=== PATIENT | female | born 1975 | race Hispanic/Latino ===

== ENCOUNTER 2017-11-05 23:59 | Inpatient (IN) | payer MEDICAID ==
[2017-11-06 02:01] LABS: Basophils % (Auto) 0.5 % (0.0-1.8); Eosinophils # (Auto) 0.2 K/mm3 (0.0-0.4); Eosinophils % (Auto) 1.8 % (0.0-4.3); Hemoglobin 12.9 gm/dl (10.1-14.3); Lymphocytes % (Auto) 23.8 % (13.4-35.0); Mean Corpuscular HGB Conc 32 % (30-34); Mean Corpuscular Hemoglobin 31 pg (28-32); Mean Corpuscular Volume 96 fl (79-97); Monocytes # (Auto) 0.3 K/mm3 (0.0-0.8); Monocytes % (Auto) 3.8 % (0.0-7.3); Platelet Count 195 K/mm3 (140-440); Red Blood Count 4.17 M/mm3 (3.65-5.03); Red Cell Distribution Width 14.7 % (13.2-15.2)
[2017-11-06 02:17] LABS: BUN/Creatinine Ratio 13; Blood Urea Nitrogen 39 mg/dL (7-17); Calcium 7.7 mg/dL (8.4-10.2); Hemolysis Index 5
--- NOTE | 2017-11-06 07:47 | Emergency Department Report ---
ED Chest Pain HPI - General Chief Complaint: Chest Pain Stated Complaint: CHEST PAIN Time Seen by Provider: 11/06/17 07:45 Source: patient Mode of arrival: Stretcher Limitations: No Limitations - History of Present Illness Initial Comments: This is a 42-year-old female with extensive history of coronary artery disease and insulin-dependent diabetes and hypertension. She requires awakening to obtain a history. She does states that she's been having substernal chest pain which does not radiate since yesterday but it has resolved now. She denies any associated symptoms. She doesn't appear very motivated to talk about her history. She is denying any problem at this time. She states the pain lasted "all day" yesterday. MD Complaint: chest pain -: hour(s) Onset: during rest Pain Location: substernal Pain Radiation: none Severity: mild, moderate Quality: pressure Consistency: constant, now resolved Improves With: nothing (does not take nitroglycerin) Worsens With: nothing re: denies: nausea, vomting, diaphoresis, dyspnea, sense of impending doom Other Symptoms: denies: cough, fever, syncope Treatments Prior to Arrival: none Aspirin use within the Past 7 Days: (0) No - Related Data On Oral Contraceptives: No Home Medications Medication Instructions Recorded Confirmed Last Taken AtorvaSTATin [Lipitor] 40 mg PO DAILY 09/16/16 09/14/17 1 Day Ago ~09/13/17 hydrALAZINE [Apresoline TAB] 25 mg PO Q8HR 09/16/16 09/14/17 1 Day Ago ~09/13/17 Previous Rx's Medication Instructions Recorded Last Taken Type Apixaban [Eliquis] 2.5 mg PO BID 60 Days tablet 07/22/16 1 Day Ago Rx ~09/13/17 Diltiazem Cd [Cardizem CD] 180 mg PO QDAY #30 capsule 07/22/16 1 Day Ago Rx ~09/13/17 ISOSORBIDE MONOnitrate [Imdur ER] 60 mg PO QDAY #30 tablet 07/22/16 1 Day Ago Rx ~09/13/17 Insulin Glargine,Hum.rec.anlog 20 unit SQ QHS #30 07/22/16 1 Day Ago Rx [Lantus Solostar] ~09/13/17 Metoprolol [Lopressor TAB] 25 mg PO BID #60 tablet 07/22/16 1 Day Ago Rx ~09/13/17 Torsemide [Demadex] 40 mg PO DAILY 30 Days tablet 09/17/16 1 Day Ago Rx ~09/13/17 Aspirin EC [Aspirin Enteric Coated 81 mg PO QDAY tablet 10/12/16 1 Day Ago Rx TAB] ~09/13/17 Furosemide [Lasix TAB] 20 mg PO DAILY #30 tablet 09/15/17 Unknown Rx Ranolazine ER [Ranexa ER] 500 mg PO BID #60 tablet 09/15/17 Unknown Rx Allergies Allergy/AdvReac Type Severity Reaction Status Date / Time No Known Allergies Allergy Verified 10/10/13 01:16 Heart Score - HEART Score History: Moderately suspicious EKG: Non-specific Age: < 45 Risk factors: > 3 risk factors or hx of atherosclerotic disease Troponin: < normal limit HEART Score: 4 - Critical Actions Critical Actions: 4-6 pts:12-16.6% risk of adverse cardiac event. Should be admitted ED Review of Systems ROS: Stated complaint: CHEST PAIN Other details as noted in HPI Constitutional: denies: chills, fever Eyes: denies: eye pain, eye discharge, vision change ENT: denies: ear pain, throat pain Respiratory: denies: cough, shortness of breath, wheezing Cardiovascular: chest pain. denies: palpitations Endocrine: no symptoms reported Gastrointestinal: denies: abdominal pain, nausea, diarrhea Genitourinary: denies: urgency, dysuria, discharge Musculoskeletal: denies: back pain, joint swelling, arthralgia Skin: denies: rash, lesions Neurological: denies: headache, weakness, paresthesias Psychiatric: denies: anxiety, depression Hematological/Lymphatic: denies: easy bleeding, easy bruising ED Past Medical Hx - Past Medical History Previous Medical History?: Yes Hx Hypertension: Yes Hx Congestive Heart Failure: Yes Hx Diabetes: Yes Hx Asthma: No Hx COPD: Yes Hx HIV: No Additional medical history: Pulmonary hypertension and dilated right atrium or neck. Left ventricular function within normal limits.Patient says she is on stage 4 of renal failure.But not on dialysis. - Surgical History Past Surgical History?: Yes Additional Surgical History: Bilateral cataracts and laser surgery for diabetic retinopathy with residual decreased vision in the left eye even prior to today. - Social History Smoking Status: Never Smoker Substance Use Type: None - Medications Home Medications: Home Medications Medication Instructions Recorded Confirmed Last Taken Type Apixaban [Eliquis] 2.5 mg PO BID 60 Days tablet 07/22/16 09/14/17 1 Day Ago Rx ~09/13/17 Diltiazem Cd [Cardizem CD] 180 mg PO QDAY #30 capsule 07/22/16 09/14/17 1 Day Ago Rx ~09/13/17 ISOSORBIDE MONOnitrate [Imdur ER] 60 mg PO QDAY #30 tablet 07/22/16 09/14/17 1 Day Ago Rx ~09/13/17 Insulin Glargine,Hum.rec.anlog 20 unit SQ QHS #30 07/22/16 09/14/17 1 Day Ago Rx [Lantus Solostar] ~09/13/17 Metoprolol [Lopressor TAB] 25 mg PO BID #60 tablet 07/22/16 09/14/17 1 Day Ago Rx ~09/13/17 AtorvaSTATin [Lipitor] 40 mg PO DAILY 09/16/16 09/14/17 1 Day Ago History ~09/13/17 hydrALAZINE [Apresoline TAB] 25 mg PO Q8HR 09/16/16 09/14/17 1 Day Ago History ~09/13/17 Torsemide [Demadex] 40 mg PO DAILY 30 Days tablet 09/17/16 09/14/17 1 Day Ago Rx ~09/13/17 Aspirin EC [Aspirin Enteric Coated 81 mg PO QDAY tablet 10/12/16 09/14/17 1 Day Ago Rx TAB] ~09/13/17 Furosemide [Lasix TAB] 20 mg PO DAILY #30 tablet 09/15/17 Unknown Rx Ranolazine ER [Ranexa ER] 500 mg PO BID #60 tablet 09/15/17 Unknown Rx ED Physical Exam - General Limitations: No Limitations General appearance: alert, in no apparent distress - Head Head exam: Present: atraumatic, normocephalic - Eye Eye exam: Present: normal appearance. Absent: scleral icterus - ENT ENT exam: Present: mucous membranes moist - Neck Neck exam: Present: normal inspection - Respiratory Respiratory exam: Present: normal lung sounds bilaterally. Absent: respiratory distress - Cardiovascular Cardiovascular Exam: Present: regular rate, normal rhythm. Absent: systolic murmur, diastolic murmur, rubs, gallop - GI/Abdominal GI/Abdominal exam: Present: soft, normal bowel sounds. Absent: distended, tenderness, guarding, rebound, rigid - Extremities Exam Extremities exam: Present: normal inspection, full ROM, normal capillary refill , pedal edema. Absent: tenderness, joint swelling, calf tenderness - Back Exam Back exam: Present: normal inspection - Neurological Exam Neurological exam: Present: alert, oriented X3, CN II-XII intact. Absent: motor sensory deficit - Psychiatric Psychiatric exam: Present: normal mood, flat affect - Skin Skin exam: Present: warm, dry, intact, normal color. Absent: rash ED Course Vital Signs 11/06/17 11/06/17 00:38 07:34 Temperature 98.7 F Pulse Rate 72 Respiratory 17 16 Rate Blood Pressure 187/104 O2 Sat by Pulse 99 98 Oximetry - Reevaluation(s) Reevaluation #1: Patient is admitted to the hospitalist service in stable condition. Discussed with Dr. Mason 11/06/17 09:21 LUCHO score - Lucho Score Age > 65: (0) No Aspirin use within the Past 7 Days: (1) Yes 3 or more CAD Risk Factors: (1) Yes 2 or more Angina events in past 24 hrs: (1) Yes Known CAD with more than 50% Stenosis: (0) No Elevated Cardiac Markers: (0) No ST Deviation Greater than 0.5mm: (1) Yes LUCHO Score: 4 ED Medical Decision Making - Lab Data Result diagrams: 11/06/17 01:37 11/06/17 01:37 Laboratory Results - last 24 hr 11/06/17 11/06/17 11/06/17 01:37 01:37 04:52 WBC 8.5 RBC 4.17 Hgb 12.9 Hct 40.0 MCV 96 MCH 31 MCHC 32 RDW 14.7 Plt Count 195 Lymph % (Auto) 23.8 [place] % (Auto) 3.8 Eos % (Auto) 1.8 Baso % (Auto) 0.5 Lymph # 2.0 [place] # 0.3 Eos # 0.2 Baso # 0.0 Seg Neutrophils % 70.1 H Seg Neutrophils # 6.0 Sodium 135 L Potassium 4.0 Chloride 102.1 Carbon Dioxide 19 L Anion Gap 18 BUN 39 H Creatinine 2.9 H Estimated GFR 18 BUN/Creatinine Ratio 13 Glucose 154 H Calcium 7.7 L Troponin T < 0.010 < 0.010 - EKG Data -: EKG Interpreted by Me EKG shows normal: sinus rhythm, axis, intervals, QRS complexes, ST-T waves Rate: normal - EKG Data Interpretation: other (incomplete right bundle branch block plus left posterior fascicular block. No acute ischemic changes.) - Radiology Data Radiology results: pending Critical care attestation.: If time is entered above; I have spent that time in minutes in the direct care of this critically ill patient, excluding procedure time. ED Disposition Clinical Impression: Insulin dependent diabetes mellitus, Chronic renal insufficiency, stage III ( moderate) Chest pain Qualifiers: Chest pain type: unspecified Qualified Code(s): R07.9 - Chest pain, unspecified CAD (coronary artery disease) Qualifiers: Coronary Disease-Associated Artery/Lesion type: [place] artery [place] vs. transplanted heart: [place] heart Associated angina: with stable angina Qualified Code(s): I25.118 - Atherosclerotic heart disease of [place] coronary artery with other forms of angina pectoris Disposition: DC-09 OP ADMIT IP TO THIS HOSP Is pt being admited?: Yes Does the pt Need Aspirin: Yes Condition: Stable
[2017-11-06] MEDS ORDERED: ASPIRIN PO ONE (08:24)
[2017-11-06] MEDS ORDERED: NITRO-BID 2% TP ONE (08:24)
[2017-11-06] MEDS ORDERED: SODIUM CHLORIDE FLUSH SYRINGE 10 ML IV PRN (10:16)
--- NOTE | 2017-11-06 10:16 | History and Physical Report ---
History of Present Illness Date of examination: 11/06/17 Date of admission: 11/06/17 08:19 Chief complaint: chest pain History of present illness: Pt is a 42-year-old female with extensive history of coronary artery disease and insulin-dependent diabetes and hypertensionpresented to the ED [facility] on account of dull retrosternal chest pain. She does states that she's been having substernal chest pain which does not radiate since yesterday but it has resolved now. Denies any shortness of breath, orthopnea or PND . On admission, initial set of cardiac enzymes were normal. EKG and CXR were unremarkable. BUN and creatinine were very elevated as well as BNP. Pt denies any fever, chill N/V , or syncope. Admission was requested. Past History Past Medical History: diabetes, hypertension Medications and Allergies Allergies Allergy/AdvReac Type Severity Reaction Status Date / Time No Known Allergies Allergy Verified 10/10/13 01:16 Home Medications Medication Instructions Recorded Confirmed Last Taken Type Apixaban [Eliquis] 2.5 mg PO BID 60 Days tablet 07/22/16 11/06/17 11/05/17 Rx Insulin Glargine,Hum.rec.anlog 20 unit SQ QHS #30 07/22/16 11/06/17 11/05/17 Rx [Lantus Solostar] hydrALAZINE [Apresoline TAB] 15 mg PO Q8HR 09/16/16 11/06/17 11/05/17 History Aspirin EC [Aspirin Enteric Coated 81 mg PO QDAY tablet 10/12/16 11/06/1711/05 Rx TAB] Lispro Insulin [Humalog] 15 unit SQ BID 11/06/17 11/06/17 11/05/17 History Review of Systems Constitutional: no weight loss, no fever, no chills Ears, nose, mouth and throat: no ear pain, no ear discharge Cardiovascular: chest pain, orthopnea, no palpitations Respiratory: no cough, no cough with sputum, no excessive sputum Gastrointestinal: no abdominal pain, no nausea, no vomiting, no diarrhea Musculoskeletal: no neck stiffness, no neck pain, no shooting arm pain Integumentary: no rash, no pruritis, no redness Neurological: no head injury, no transient paralysis, no paralysis, no weakness , no parathesias, no lack of coordination Psychiatric: no anxiety, no memory loss, no change in sleep habits, no sleep disturbances Endocrine: no cold intolerance, no heat intolerance, no polyphagia, no excessive thirst, no polydipsia Hematologic/Lymphatic: no easy bruising, no easy bleeding Allergic/Immunologic: no urticaria, no allergic rhinitis Exam - Physical Exam Narrative exam: Constitutional: Well-nourished well-developed. In no distress Head: Normocephalic atraumatic Eyes: Pupils are equal round and reactive to light Nose: No enlarged turbinates, no septal deviation. Mouth: Moist mucous membranes. Neck: Supple no thyromegaly. No bruit. No JVD Heart: Regular rate and rhythm, S1-S2 abnormal. No rubs murmurs or gallop Lungs: Clear to auscultation bilaterally no rales or rhonchi Abdomen: Soft, nontender. Bowel sound are present. Extremities: No edema no cyanosis and no clubbing. Neuro: Alert oriented Oriented x3. No focal sensory or motor deficit. Skin: No rashes no hyperemic spots Psychiatry: Euthymic. Calm. - Constitutional Vitals: Temp Pulse Resp BP Pulse Ox 98.7 F 72 16 187/104 98 11/06/17 00:38 11/06/17 00:38 11/06/17 07:34 11/06/17 00:38 11/06/17 07:34 Results - Labs CBC & Chem 7: 11/06/17 10:33 11/06/17 09:52 Labs: Abnormal lab results 11/06/17 11/06/17 Range/Units 01:37 01:37 Seg Neutrophils % 70.1 H (40.0-70.0) % Sodium 135 L (137-145) mmol/L Carbon Dioxide 19 L (22-30) mmol/L BUN 39 H (7-17) mg/dL Creatinine 2.9 H (0.7-1.2) mg/dL Glucose 154 H (65-100) mg/dL Calcium 7.7 L (8.4-10.2) mg/dL Assessment and Plan - Chest pain Admit to telemetry Obtain serial cardiac enzymes Initiate chest pain workup with oxygen nitroglycerin and aspirin and morphine. - Acute on chronic renal failure from acute tubular necrosis Urinalysis, urine electrolytes, Renal ultrasound, Nephrology consult - Diabetes mellitus Initiates Sliding scale insulin Obtain A1c Consistent carbohydrate diet - History of PAfib Elevated BNP- may be secondary to Chronic Renal failure. Howeer we will obtain ECHO Diuresis BB, Hold ACEIb/c Acute on chronic renal failure - HTN optimoncze control DVT PPX with heparin
--- NOTE | 2017-11-06 10:17 | XRay Report ---
Portable chest: Comparison is made to the prior exam on September 13, 2017. There is suggestion of a focal area of mild alveolar opacity or atelectasis in the left upper lobe not previously noted. A couple areas of focal linear atelectasis/scar are noted in the mid left lung but not substantially different than previous exam. Lungs otherwise appear clear. The heart is probably not enlarged poor positioning. There is no vascular congestion. Impression: Focal left upper lobe infiltrate/atelectasis.
[2017-11-06 10:20] LABS: Alanine Aminotransferase 7 units/L (7-56); Albumin 2.8 g/dL (3.9-5)
[2017-11-06 10:33] LABS: Bilirubin,Direct < 0.2 mg/dL (0-0.2)
[2017-11-06 10:39] LABS: INR 0.98 (0.87-1.13)
[2017-11-06 10:40] LABS: Partial Thromboplastin Time 30.6 Sec. (24.2-36.6)
[2017-11-06 10:55] LABS: Basophils % (Auto) 0.6 % (0.0-1.8); Eosinophils # (Auto) 0.2 K/mm3 (0.0-0.4); Eosinophils % (Auto) 2.3 % (0.0-4.3); Hemoglobin 12.9 gm/dl (10.1-14.3); Lymphocytes # (Auto) 1.9 K/mm3 (1.2-5.4); Lymphocytes % (Auto) 25.3 % (13.4-35.0); Mean Corpuscular HGB Conc 32 % (30-34); Mean Corpuscular Hemoglobin 31 pg (28-32); Mean Corpuscular Volume 95 fl (79-97); Monocytes # (Auto) 0.3 K/mm3 (0.0-0.8); Monocytes % (Auto) 4.4 % (0.0-7.3); Platelet Count 187 K/mm3 (140-440); Red Blood Count 4.23 M/mm3 (3.65-5.03); Red Cell Distribution Width 14.7 % (13.2-15.2)
[2017-11-06 10:57] LABS: Calcium 8.2 mg/dL (8.4-10.2); Chol/HDL Ratio 3.25 %
[2017-11-06] MEDS: ZESTRIL PO SCH ×2 (11:00→23:00)
--- NOTE | 2017-11-06 11:10 | XRay Report ---
PA and lateral chest: Chest pain. There is focal linear atelectasis in the left midlung region. Lungs otherwise appear generally clear. There is mild enlargement of the heart. There is no vascular congestion. Compared to prior exam on November 06 of focal atelectasis may be slightly increased but the findings are not otherwise changed. Impression: Focal left atelectasis. Mild cardiac enlargement.
--- NOTE | 2017-11-06 12:13 | Consultation ---
History of Present Illness Consult date: 11/06/17 Consult reason: chest pain History of present illness: This is a 42yr old woman with a history of coronary artery disease with a drug- eluting stent placed to the right coronary artery in June 2016. 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 Patient is followed with Dr Mckeon, sporting goods sales associate in [place]. She presents to this hospital with complaints of atypical chest pain. There were no reports of shortness of breath or palpitations. There was no pre- syncope or syncope. Her EKG is a sinus rhythm, no acute ischemic changes. On review of records, patient was admitted to this hospital 6 weeks ago for cardiac evaluation. She underwent a thallium stress test that reports a large, fixed defect on the lateral wall of the left ventricle, with no reversibility on the resting study. This appears consistent with a prior lateral infarct. 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 Medications and Allergies Allergies Allergy/AdvReac Type Severity Reaction Status Date / Time No Known Allergies Allergy Verified 10/10/13 01:16 Home Medications Medication Instructions Recorded Confirmed Last Taken Type Apixaban [Eliquis] 2.5 mg PO BID 60 Days tablet 07/22/16 09/14/17 1 Day Ago Rx ~09/13/17 Diltiazem Cd [Cardizem CD] 180 mg PO QDAY #30 capsule 07/22/16 09/14/17 1 Day Ago Rx ~09/13/17 ISOSORBIDE MONOnitrate [Imdur ER] 60 mg PO QDAY #30 tablet 07/22/16 09/14/17 1 Day Ago Rx ~09/13/17 Insulin Glargine,Hum.rec.anlog 20 unit SQ QHS #30 07/22/16 09/14/17 1 Day Ago Rx [Lantus Solostar] ~09/13/17 Metoprolol [Lopressor TAB] 25 mg PO BID #60 tablet 07/22/16 09/14/17 1 Day Ago Rx ~09/13/17 AtorvaSTATin [Lipitor] 40 mg PO DAILY 09/16/16 09/14/17 1 Day Ago History ~09/13/17 hydrALAZINE [Apresoline TAB] 25 mg PO Q8HR 09/16/16 09/14/17 1 Day Ago History ~09/13/17 Torsemide [Demadex] 40 mg PO DAILY 30 Days tablet 09/17/16 09/14/17 1 Day Ago Rx ~09/13/17 Aspirin EC [Aspirin Enteric Coated 81 mg PO QDAY tablet 10/12/16 09/14/17 1 Day Ago Rx TAB] ~09/13/17 Furosemide [Lasix TAB] 20 mg PO DAILY #30 tablet 09/15/17 Unknown Rx Ranolazine ER [Ranexa ER] 500 mg PO BID #60 tablet 09/15/17 Unknown Rx Active Meds: Active Medications Aspirin (Ecotrin) 325 mg PO QDAY EILSE Atorvastatin Calcium (Lipitor) 20 mg PO QHS ELISE Carvedilol (Coreg) 6.25 mg PO BID ELISE Furosemide (Lasix) 20 mg IV QDAY ELISE Lisinopril (Zestril) 20 mg PO BID ELISE Nitroglycerin (Nitro-Bid 2%) 0.5 inch TP TIDNTG ELISE; Protocol Sodium Chloride (Sodium Chloride Flush Syringe 10 Ml) 10 ml IV PRN PRN PRN Reason: LINE FLUSH Physical Examination Vital Signs Temp Pulse Resp BP Pulse Ox 98.7 F 72 17 187/104 99 11/06/17 00:38 11/06/17 00:38 11/06/17 00:38 11/06/17 00:38 11/06/17 00:38 General appearance: no acute distress HEENT: Positive: PERRL Cardiac: Positive: Reg Rate and Rhythm Lungs: Positive: Decreased Breath Sounds Extremities: Absent: edema Results 11/06/17 10:33 11/06/17 09:52 Cardiac Enzymes 11/06/17 Range/Units 09:52 AST 8 (5-40) units/L Coagulation 11/06/17 Range/Units 09:52 PT 13.5 (12.2-14.9) Sec. INR 0.98 (0.87-1.13) APTT 30.6 (24.2-36.6) Sec. Lipids 11/06/17 Range/Units 09:52 Triglycerides 93 (2-149) mg/dL Cholesterol 156 (50-199) mg/dL HDL Cholesterol 48 (40-59) mg/dL Cholesterol/HDL Ratio 3.25 % CBC 11/06/17 11/06/17 Range/Units 01:37 10:33 WBC 8.5 7.3 (4.5-11.0) K/mm3 RBC 4.17 4.23 (3.65-5.03) M/mm3 Hgb 12.9 12.9 (10.1-14.3) gm/dl Hct 40.0 40.0 (30.3-42.9) % Plt Count 195 187 (140-440) K/mm3 Lymph # 2.0 1.9 (1.2-5.4) K/mm3 [place] # 0.3 0.3 (0.0-0.8) K/mm3 Eos # 0.2 0.2 (0.0-0.4) K/mm3 Baso # 0.0 0.0 (0.0-0.1) K/mm3 Comprehensive Metabolic Panel 11/06/17 11/06/17 11/06/17 Range/Units 01:37 09:52 09:52 Sodium 135 L 139 (137-145) mmol/L Potassium 4.0 3.9 (3.6-5.0) mmol/L Chloride 102.1 105.2 (98-107) mmol/L Carbon Dioxide 19 L 14 L (22-30) mmol/L BUN 39 H 40 H (7-17) mg/dL Creatinine 2.9 H 3.1 H (0.7-1.2) mg/dL Glucose 154 H 143 H (65-100) mg/dL Calcium 7.7 L 8.2 L (8.4-10.2) mg/dL Direct Bilirubin < 0.2 (0-0.2) mg/dL Indirect Bilirubin 0.2 mg/dL AST 8 (5-40) units/L ALT 7 (7-56) units/L Alkaline Phosphatase 79 (35-129) units/L Total Protein 5.8 L (6.3-8.2) g/dL Albumin 2.8 L (3.9-5) g/dL Assessment and Plan Chest Pain, atypical No ECG changes when compared to previous study Cardiac enzymes are negative x 2 CAD s/p PCI to RCA 06/2016 with a 4.0 AGA 08/2017 thallium stress test that reports a large, fixed defect on the lateral wall of the left ventricle, with no reversibility. This appears consistent with a prior lateral infarct. 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 Echo 05/2016 - normal LVEF Paroxysmal atrial fibrillation on eliquis as an outpatient Chronic renal failure Hypertriglyceridemia History of CVA Systemic Hypertension Type II DM Recommend: Medical therapy for coronary artery disease including long-acting nitrates and add Ranexa 500 mg twice a day.
[2017-11-06] MEDS: COREG PO SCH ×2 (13:42→22:55)
[2017-11-06] MEDS ORDERED: NON-FORMULARY (Insulin Glargine,Hum.Rec.Anlog [Lantus Solostar] 20 UNIT) SQ SCH (22:00)
[2017-11-06] MEDS: LANTUS SUB-Q SCH (22:59)
[2017-11-06] MEDS: RANEXA ER PO SCH (22:59)
[2017-11-06] MEDS: IMDUR PO SCH (23:00)
[2017-11-06] MEDS: CARDIZEM CD PO SCH (23:01)
[2017-11-06] MEDS: ELIQUIS PO SCH (23:01)
[2017-11-07] MEDS: NITRO-BID 2% TP SCH ×3 (02:17→11:03)
[2017-11-07 07:08] LABS: Basophils # (Auto) 0.1 K/mm3 (0.0-0.1); Basophils % (Auto) 0.9 % (0.0-1.8); Eosinophils # (Auto) 0.2 K/mm3 (0.0-0.4); Eosinophils % (Auto) 2.8 % (0.0-4.3); Hematocrit 33.4 % (30.3-42.9); Lymphocytes # (Auto) 2.1 K/mm3 (1.2-5.4); Lymphocytes % (Auto) 34.9 % (13.4-35.0); Mean Corpuscular HGB Conc 33 % (30-34); Mean Corpuscular Hemoglobin 31 pg (28-32); Mean Corpuscular Volume 94 fl (79-97); Monocytes # (Auto) 0.3 K/mm3 (0.0-0.8); Monocytes % (Auto) 5.1 % (0.0-7.3); Platelet Count 182 K/mm3 (140-440); Red Blood Count 3.54 M/mm3 (3.65-5.03); Red Cell Distribution Width 14.2 % (13.2-15.2)
[2017-11-07 08:13] LABS: Albumin 2.4 g/dL (3.9-5); Calcium 7.7 mg/dL (8.4-10.2)
[2017-11-07] MEDS: IMDUR PO SCH (09:01)
[2017-11-07] MEDS: RANEXA ER PO SCH (09:01)
[2017-11-07] MEDS: ELIQUIS PO SCH (09:01)
[2017-11-07] MEDS: CARDIZEM CD PO SCH (09:01)
[2017-11-07] MEDS: ZESTRIL PO SCH (09:01)
[2017-11-07] MEDS: COREG PO SCH (09:02)
[2017-11-07] MEDS: ECOTRIN PO SCH (09:03)
[2017-11-07] MEDS ORDERED: LASIX IV SCH (10:00)
--- NOTE | 2017-11-07 10:45 | Progress Note ---
Assessment and Plan Chest Pain, atypical No ECG changes when compared to previous study Cardiac enzymes are negative x 2 CAD s/p PCI to RCA 06/2016 with a 4.0 AGA 08/2017 thallium stress test that reports a large, fixed defect on the lateral wall of the left ventricle, with no reversibility. This appears consistent with a prior lateral infarct. 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 Echo 05/2016 - normal LVEF Paroxysmal atrial fibrillation on eliquis as an outpatient Chronic renal failure Hypertriglyceridemia History of CVA Systemic Hypertension Type II DM Recommend: Medical therapy for coronary artery disease including long-acting nitrates, beta blockers and aspirin. Stable cardiac leung for discharge today. Patient advised to follow up with her primary pastrycook in [place] within 5-7 days. Subjective Date of service: 11/07/17 Interval history: Patient is resting in bed comfortably. She denies chest pain and shortness of breath. Objective Vital Signs Temp Pulse Pulse Resp BP Pulse Ox 11/07/17 10:00 20 100 11/07/17 08:12 98.0 F 70 17 117/71 93 11/07/17 05:45 55 L 105/61 11/07/17 05:21 97.8 F 55 L 20 105/61 98 11/07/17 00:08 98.0 F 60 20 134/78 97 11/06/17 23:01 65 148/87 11/06/17 23:00 65 148/87 11/06/17 22:55 65 148/87 11/06/17 22:13 65 20 100 11/06/17 19:45 64 11/06/17 19:38 97.8 F 65 18 148/87 100 11/06/17 17:09 98.5 F 61 16 131/79 98 11/06/17 13:42 73 142/83 11/06/17 11:00 73 142/83 - Physical Examination General: No Apparent Distress HEENT: Positive: PERRL Cardiac: Positive: Reg Rate and Rhythm, Systolic Murmur Lungs: Positive: Decreased Breath Sounds Neuro: Positive: Grossly Intact Extremities: Absent: edema - Labs and Meds Cardiac Enzymes 11/07/17 Range/Units 06:05 AST 7 (5-40) units/L Lipids 11/06/17 Range/Units 09:52 Triglycerides 93 (2-149) mg/dL Cholesterol 156 (50-199) mg/dL HDL Cholesterol 48 (40-59) mg/dL Cholesterol/HDL Ratio 3.25 % CBC 11/06/17 11/07/17 Range/Units 10:33 06:05 WBC 7.3 5.9 (4.5-11.0) K/mm3 RBC 4.23 3.54 L (3.65-5.03) M/mm3 Hgb 12.9 11.0 (10.1-14.3) gm/dl Hct 40.0 33.4 D (30.3-42.9) % Plt Count 187 182 (140-440) K/mm3 Lymph # 1.9 2.1 (1.2-5.4) K/mm3 [place] # 0.3 0.3 (0.0-0.8) K/mm3 Eos # 0.2 0.2 (0.0-0.4) K/mm3 Baso # 0.0 0.1 (0.0-0.1) K/mm3 Comprehensive Metabolic Panel 11/06/17 11/07/17 Range/Units 09:52 06:05 Sodium 139 139 (137-145) mmol/L Potassium 3.9 3.9 (3.6-5.0) mmol/L Chloride 105.2 107.1 H (98-107) mmol/L Carbon Dioxide 14 L 19 L (22-30) mmol/L BUN 40 H 39 H (7-17) mg/dL Creatinine 3.1 H 3.3 H (0.7-1.2) mg/dL Glucose 143 H 89 (65-100) mg/dL Calcium 8.2 L 7.7 L (8.4-10.2) mg/dL AST 7 (5-40) units/L ALT 6 L (7-56) units/L Alkaline Phosphatase 66 (35-129) units/L Total Protein 5.1 L (6.3-8.2) g/dL Albumin 2.4 L (3.9-5) g/dL
[2017-11-07 11:32] LABS: Bilirubin,Urine NEG (Negative); Blood,Urine NEG (Negative); Color,Urine Yellow (Yellow); Mucus,Urine FEW /HPF; Protein,Urine >500 mg/dL (Negative); Urobilinogen,Urine < 2.0 mg/dL (<2.0)
--- NOTE | 2017-11-07 12:26 | Ultrasound Report ---
ULTRASOUND RENAL INDICATION: Acute on chronic renal failure. COMPARISON: 07/17/2016. FINDINGS: Renal sonography again suggests mild increased renal cortical echogenicity, somewhat difficult to appreciate on the right secondary to coarse imaged liver. Right hepatic lobe approximately 17.7 cm in midclavicular length. Grossly preserved contours. No hydronephrosis. RIGHT KIDNEY measures 10.6 x 4.2 x 4.7 cm with cortical thickness of 1.1 cm. LEFT KIDNEY estimated at 9.4 x 4.2 x 5.3 cm with cortical thickness of 1.1 cm. URINARY BLADDER suboptimally distended and assessed. CONCLUSION: No acute renal abnormality with mild underlying medical renal disease and possible fatty liver sonographically, as described. Please correlate. Thank you for the opportunity to participate in this patient's care.
[2017-11-07 12:58] LABS: Creatinine,Urine 105.3 mg/dL (0.1-20.0)
--- NOTE | 2017-11-07 13:07 | Progress Note ---
Subjective Date of service: 11/07/17 Principal diagnosis: Acute kidney injury Interval history: Consult note was dictated. Objective - Vital Signs Vital signs: Vital Signs - 12hr 11/07/17 11/07/17 11/07/17 05:21 05:45 08:12 Temperature 97.8 F 98.0 F Pulse Rate 55 L 55 L 70 Respiratory 20 17 Rate Blood Pressure 105/61 105/61 117/71 O2 Sat by Pulse 98 93 Oximetry 11/07/17 10:00 Temperature Pulse Rate Respiratory 20 Rate Blood Pressure O2 Sat by Pulse 100 Oximetry - Lab 11/07/17 06:05 11/08/17 04:20 Most recent lab results Calcium 7.7 mg/dL (8.4-10.2) L 11/07/17 06:05 Magnesium 1.90 mg/dL (1.7-2.3) 11/06/17 09:52 Urine Creatinine 105.3 mg/dL (0.1-20.0) H 11/07/17 Unknown Urine Sodium 76 mmol/L 11/07/17 Unknown
[2017-11-07 13:10] LABS: Microalbumin/Creatinine Ratio 3628.6 ug/mg
[2017-11-07] MEDS ORDERED: NACL 0.9% 500 ML 500 ML ONE (13:13)
[2017-11-07] MEDS ORDERED: NACL 0.9% 500 ML 500 ML IV ONE (13:15)
--- NOTE | 2017-11-07 14:58 | Operative Report ---
Operative Report Operative Report: EXAM: CENTRAL VENOUS CATHETER PLACEMENT CLINICAL INDICATION: PATIENT WITH HYPOTENSION REQUIRING PRESSORS DATE: 11/07/2017 PROCEDURE: Following an excellent addition of the risks, benefits and alternatives; written informed consent was obtained. The procedure was performed at bedside in the ICU. Initial ultrasound evaluation of the patient' s left groin demonstrated a patent left common femoral vein. Patient's left groin was prepped and draped in the usual sterile fashion. 1% lidocaine was used for anesthesia. Under ultrasound guidance, the left common femoral vein was cannulated with a 7 cm 18-gauge needle. A 0.035 guidewire was advanced centrally easily. The needle was withdrawn and following serial dilation, a triple-lumen catheter was advanced over the guidewire set centrally. The guidewire was removed. All 3 ports flushed and aspirated nonpulsatile blood a. The ports were then locked with sterile saline. The catheter was securely fastened to the skin surface using a StatLock device and a sterile dressing applied. The patient tolerated the procedure well. There were no immediate post procedure complications. IMPRESSION: Ultrasound guided placement of central venous catheter via the left common femoral vein.
[2017-11-07] MEDS ORDERED: ZOFRAN IV PRN (15:10)
[2017-11-07] MEDS ORDERED: NACL 0.9% 1000 ML 1,000 ML IV ONE (15:12)
[2017-11-07] MEDS ORDERED: ATROPINE IV ONE ×2 (15:15→16:19)
[2017-11-07] MEDS ORDERED: ATROPINE 0.1% (CARDIAC) ONE ×2 (15:16→16:19)
[2017-11-07] MEDS ORDERED: GLUCAGEN IV ONE (15:19)
[2017-11-07] MEDS ORDERED: LEVOPHED DRIP 4 MG/NS 250 ML 4 MG/250 ML BAG IV SCH (16:00)
[2017-11-07] MEDS ORDERED: INTROPIN DRIP 800 MG/D5W 250 ML 800 MG/250 ML BAG IV SCH (16:00)
--- NOTE | 2017-11-07 16:08 | Progress Note ---
Assessment and Plan Assessment and plan: Chest pain -serial cardiac enzymes neg -no further testing per cardiology -cont medical mgx Acute on chronic renal failure - on IVF - Renal ultrasound neg for hydronephrosis - Nephrology consulted Bradycardia with hypotension -probably med induced (renexa, coreg and diltiazem) -pt transferred to the icu for iv pressor IDDM2 -BG controlled History of PAfib with bradycardia -avoid bradycardic agents -cont eliquis Elevated BNP - ECHO pending Disp: pt transferred to the ICU History Interval history: Pt was initially seen in am and she did not have any complaints. However, she subsequently became diaphoretic with bradycardia and hypotension. Rapid respond was called. She was given iv fluid boluses without significant response, so she was transferred to the ICU for iv pressor. Hospitalist Physical - Constitutional Vitals: Temp Pulse Resp BP Pulse Ox 98.0 F 36 L 20 71/38 100 11/07/17 08:12 11/07/17 10:00 11/07/17 10:00 11/07/17 10:00 11/07/17 10:00 General appearance: Present: no acute distress - EENT Eyes: Present: PERRL - Neck Neck: Present: supple - Respiratory Respiratory effort: normal Respiratory: bilateral: CTA - Cardiovascular Rhythm: other (bradycardia with regular rhythm) - Extremities Extremities: No edema - Abdominal General gastrointestinal: soft, non-tender, normal bowel sounds - Neurologic Neurologic: CNII-XII intact Results - Labs CBC & Chem 7: 11/07/17 06:05 11/07/17 06:05 Labs: Laboratory Last Values WBC 5.9 K/mm3 (4.5-11.0) 11/07/17 06:05 RBC 3.54 M/mm3 (3.65-5.03) L 11/07/17 06:05 Hgb 11.0 gm/dl (10.1-14.3) 11/07/17 06:05 Hct 33.4 % (30.3-42.9) D 11/07/17 06:05 MCV 94 fl (79-97) 11/07/17 06:05 MCH 31 pg (28-32) 11/07/17 06:05 MCHC 33 % (30-34) 11/07/17 06:05 RDW 14.2 % (13.2-15.2) 11/07/17 06:05 Plt Count 182 K/mm3 (140-440) 11/07/17 06:05 Lymph % (Auto) 34.9 % (13.4-35.0) 11/07/17 06:05 [place] % (Auto) 5.1 % (0.0-7.3) 11/07/17 06:05 Eos % (Auto) 2.8 % (0.0-4.3) 11/07/17 06:05 Baso % (Auto) 0.9 % (0.0-1.8) 11/07/17 06:05 Lymph # 2.1 K/mm3 (1.2-5.4) 11/07/17 06:05 [place] # 0.3 K/mm3 (0.0-0.8) 11/07/17 06:05 Eos # 0.2 K/mm3 (0.0-0.4) 11/07/17 06:05 Baso # 0.1 K/mm3 (0.0-0.1) 11/07/17 06:05 Seg Neutrophils % 56.3 % (40.0-70.0) 11/07/17 06:05 Seg Neutrophils # 3.3 K/mm3 (1.8-7.7) 11/07/17 06:05 PT 13.5 Sec. (12.2-14.9) 11/06/17 09:52 INR 0.98 (0.87-1.13) 11/06/17 09:52 APTT 30.6 Sec. (24.2-36.6) 11/06/17 09:52 Sodium 139 mmol/L (137-145) 11/07/17 06:05 Potassium 3.9 mmol/L (3.6-5.0) 11/07/17 06:05 Chloride 107.1 mmol/L (98-107) H 11/07/17 06:05 Carbon Dioxide 19 mmol/L (22-30) L 11/07/17 06:05 Anion Gap 17 mmol/L 11/07/17 06:05 BUN 39 mg/dL (7-17) H 11/07/17 06:05 Creatinine 3.3 mg/dL (0.7-1.2) H 11/07/17 06:05 Estimated GFR 15 ml/min 11/07/17 06:05 BUN/Creatinine Ratio 12 % 11/07/17 06:05 Glucose 89 mg/dL (65-100) 11/07/17 06:05 POC Glucose 162 (70-105) H 11/07/17 13:22 Hemoglobin A1c 7.0 % (4-6) H 11/06/17 10:33 Calcium 7.7 mg/dL (8.4-10.2) L 11/07/17 06:05 Magnesium 1.90 mg/dL (1.7-2.3) 11/06/17 09:52 Total Bilirubin 0.30 mg/dL (0.1-1.2) 11/07/17 06:05 Direct Bilirubin < 0.2 mg/dL (0-0.2) 11/06/17 09:52 Indirect Bilirubin 0.2 mg/dL 11/06/17 09:52 AST 7 units/L (5-40) 11/07/17 06:05 ALT 6 units/L (7-56) L 11/07/17 06:05 Alkaline Phosphatase 66 units/L (35-129) 11/07/17 06:05 Troponin T < 0.010 ng/mL (0.00-0.029) 11/06/17 07:38 NT-Pro-B Natriuret Pep 10944 pg/mL (0-450) H 11/06/17 09:52 Total Protein 5.1 g/dL (6.3-8.2) L 11/07/17 06:05 Albumin 2.4 g/dL (3.9-5) L 11/07/17 06:05 Albumin/Globulin Ratio 0.9 % 11/07/17 06:05 Triglycerides 93 mg/dL (2-149) 11/06/17 09:52 Cholesterol 156 mg/dL (50-199) 11/06/17 09:52 LDL Cholesterol Direct 103 mg/dL (50-130) 11/06/17 09:52 HDL Cholesterol 48 mg/dL (40-59) 11/06/17 09:52 Cholesterol/HDL Ratio 3.25 % 11/06/17 09:52 Urine Color Yellow (Yellow) 11/07/17 Unknown Urine Turbidity Clear (Clear) 11/07/17 Unknown Urine pH 6.0 (5.0-7.0) 11/07/17 Unknown Ur Specific [place] 1.015 (1.003-1.030) 11/07/17 Unknown Urine Protein >500 mg/dL (Negative) 11/07/17 Unknown Urine Glucose (UA) 150 mg/dL (Negative) 11/07/17 Unknown Urine Ketones Neg mg/dL (Negative) 11/07/17 Unknown Urine Blood Neg (Negative) 11/07/17 Unknown Urine Nitrite Neg (Negative) 11/07/17 Unknown Urine Bilirubin Neg (Negative) 11/07/17 Unknown Urine Urobilinogen < 2.0 mg/dL (<2.0) 11/07/17 Unknown Ur Leukocyte Esterase Neg (Negative) 11/07/17 Unknown Urine WBC (Auto) 10.0 /HPF (0.0-6.0) H 11/07/17 Unknown Urine RBC (Auto) 2.0 /HPF (0.0-6.0) 11/07/17 Unknown Urine Mucus Few /HPF 11/07/17 Unknown Urine Creatinine 105.3 mg/dL (0.1-20.0) H 11/07/17 Unknown Urine Microalbumin 382.1 mg/dL (0.1-34.0) H 11/07/17 Unknown Microalb/Creat Ratio 3628.6 ug/mg 11/07/17 Unknown Urine Sodium 76 mmol/L 11/07/17 Unknown Urine Total Protein 250 mg/dL (5-11.8) H 11/07/17 13:08
--- NOTE | 2017-11-07 16:30 | Event Note ---
Date: 11/07/17 Patient developed acute nausea/vomiting associated with marked sinus bradycardia and hypotension. This prompted a code BLUE and transfer to ICU. We administered atropine and levophed. HR now is increased and BP is 102 systolic. Patient awake and responsive, but lethargic. Answers questions, and follows commands. History of single vessel RCA disease and recent PCI/stent. Patient is fully compliant with oral antiplatelet therapy. Labs show a worsening renal failure, Cr now 3.1. ECG: Sinus bradycardia, otherwise essentially normal ECG, no ST segment changes. Recommend: Fluids/levophed/supportive therapies. Serial cardiac enzymes. Heparin therapy. Defer to medical service for further workup of possible GI pathology and worsening RF.
[2017-11-07] MEDS: HEPARIN SUB-Q SCH ×2 (17:24→22:00)
[2017-11-07] MEDS: NACL 0.9% 1000 ML 1,000 ML IV SCH ×2 (17:26→22:58)
[2017-11-07 17:42] LABS: Creatine Kinase MB 3.1 ng/mL (0.0-4.0)
[2017-11-07] MEDS ORDERED: NACL 0.9% 500 ML 500 ML IV SCH (18:00)
[2017-11-07] MEDS ORDERED: HEPARIN/NS 5000 UNIT/500ML(CATH LAB) 1,000 ML IR ONE (18:25)
[2017-11-07] MEDS ORDERED: XYLOCAINE 2% INFILTRATI ONE (18:25)
--- NOTE | 2017-11-07 19:22 | Event Note ---
Date: 11/07/17 Junctional Bradycardia Hypotension s/p TVP via right IJ using US guidance - no complications Coronary artery disease with history of PCI in 2016 Ischemic cardiomyopathy RV dysfunction with pulmonary hypertension Paroxysmal atrial fibrillation on eliquis as outpatient Chronic renal failure Recommendations: Wean levophed Monitor rhythm overnight Avoid AV joe blocking agents Continue to hold eliquis for the time being just in case patient ends up requiring a permanent pacemaker
--- NOTE | 2017-11-07 21:36 | Cat Scan Report ---
FINAL REPORT PROCEDURE: CT ABDOMEN PELVIS WO CON TECHNIQUE: Computerized axial tomography of the abdomen and pelvis was performed without intravenous contrast. This study is performed without intravascular contrast material and its sensitivity for abdominal and pelvic pathology, including neoplasms, inflammation, abscess, free fluid, thrombosis, arterial dissection and infarction, is reduced compared with a contrast enhanced study. HISTORY: abdominal pain COMPARISON: No prior studies are available for comparison. FINDINGS: Subsegmental atelectatic changes are noted in the visualized bilateral lung bases. Liver, spleen, and adrenal glands are within normal limits. Bilateral kidneys demonstrate normal density without calculi or hydronephrosis. Mild degree bilateral perinephric fat stranding is noted most likely representing a normal variation. Aorta is of normal caliber. Mild degree of free fluid is noted in the peritoneal cavity. There is no free air. Cardiac size is upper limit of normal. Coronary arterial calcification is noted. A left femoral venous line is noted. 3.2 x 3.2 centimeters cystic lesion is noted in the left adnexal region. Mild degree degenerative changes are noted involving the lumbar spine. Vertebral height is normal. Gallbladder kc are diffusely thickened. Appendix is normal. Small bowel loops are within normal limits. IMPRESSION: Mild degree ascites Gallbladder kc are thickened most likely secondary to ascites. Ultrasound evaluation is recommended to rule out cholelithiasis and cholecystitis. 3.2 centimeters cystic lesion in the left adnexal region most likely represents left ovarian cyst. Ultrasound evaluation is recommended. Coronary arterial calcification.
[2017-11-07] MEDS: LANTUS SUB-Q SCH (21:58)
[2017-11-08 05:18] LABS: Calcium 7.3 mg/dL (8.4-10.2)
[2017-11-08] MEDS: HEPARIN SUB-Q SCH ×3 (05:45→22:27)
--- NOTE | 2017-11-08 08:35 | Progress Note ---
Assessment and Plan - Patient Problems (1) Other acute kidney failure Current Visit: Yes Status: Acute Plan to address problem: Acute kidney injury prerenal azotemia versus acute tubular necrosis secondary to hypotension. Kidney function still a bit worse. Follow up electrolytes and renal function (2) Hypotension Current Visit: Yes Status: Acute Plan to address problem: Secondary to hypertensive medications and bradycardia. Improved now. Levophed being weaned off (3) Type 2 diabetes mellitus with diabetic nephropathy Current Visit: Yes Status: Acute Plan to address problem: Blood sugar management by primary attending (4) Chronic renal insufficiency, stage III (moderate) Current Visit: Yes Status: Acute Plan to address problem: Probable diabetic nephropathy given nephrotic range proteinuria. (5) CAD (coronary artery disease) Current Visit: Yes Status: Chronic Qualifiers: Coronary Disease-Associated Artery/Lesion type: [place] artery [place] vs. transplanted heart: [place] heart Associated angina: with stable angina Qualified Code(s): I25.118 - Atherosclerotic heart disease of [place] coronary artery with other forms of angina pectoris Plan to address problem: Per cardiology (6) Bradycardia Current Visit: Yes Status: Acute Plan to address problem: Cardiology input appreciated. Status post transvenous pacemaker and beta bao stopped. Subjective Date of service: 11/08/17 Principal diagnosis: kidney injury superimposed on chronic kidney disease Interval history: Patient seen lying in bed in the intensive care unit. Eventually noted. Status post transvenous pacemaker. Beta bao and all hypotensive medications stopped. Levophed being weaned Objective - Exam Narrative Exam: Middle-aged female lying in bed in no acute distress HEENT: NCAT, pink oral mucous membrane Neck: Supple, no venous distention CVS: S1S2 RRR with no murmur, rub or gallop Chest: Clear to auscultation Abdomen: Protuberant, soft, nontender, no organomegaly, bowel sounds are present Extremities: No edema Neuro: Awake, alert no focal deficits - Vital Signs Vital signs: Vital Signs - 12hr 11/07/17 11/07/17 11/07/17 20:55 21:00 21:15 Temperature 98.0 F Pulse Rate 61 Pulse Rate [ Apical] Pulse Rate [ Left Dorsalis Pedis] Respiratory 17 Rate Blood Pressure O2 Sat by Pulse 95 94 Oximetry 11/07/17 11/07/17 11/07/17 21:16 21:30 21:46 Temperature Pulse Rate 62 60 64 Pulse Rate [ Apical] Pulse Rate [ Left Dorsalis Pedis] Respiratory 19 24 14 Rate Blood Pressure 179/92 146/71 146/71 O2 Sat by Pulse 96 94 95 Oximetry 11/07/17 11/07/17 11/07/17 22:00 22:16 22:30 Temperature Pulse Rate 62 69 76 Pulse Rate [ 60 Apical] Pulse Rate [ Left Dorsalis Pedis] Respiratory 17 22 10 L Rate Blood Pressure 155/59 172/82 135/59 O2 Sat by Pulse 95 93 92 Oximetry 11/07/17 11/07/17 11/07/17 22:45 23:00 23:15 Temperature Pulse Rate 69 67 68 Pulse Rate [ Apical] Pulse Rate [ Left Dorsalis Pedis] Respiratory 22 22 23 Rate Blood Pressure 176/86 176/86 124/70 O2 Sat by Pulse 94 94 94 Oximetry 11/07/17 11/07/17 11/07/17 23:30 23:42 23:45 Temperature 98.4 F Pulse Rate 69 69 68 Pulse Rate [ Apical] Pulse Rate [ Left Dorsalis Pedis] Respiratory 13 16 22 Rate Blood Pressure 130/71 130/71 130/74 O2 Sat by Pulse 93 95 95 Oximetry 11/08/17 11/08/17 11/08/17 00:00 00:16 00:30 Temperature Pulse Rate 69 72 70 Pulse Rate [ 70 Apical] Pulse Rate [ Left Dorsalis Pedis] Respiratory 22 18 22 Rate Blood Pressure 127/68 131/66 136/74 O2 Sat by Pulse 95 97 96 Oximetry 11/08/17 11/08/17 11/08/17 00:46 01:00 01:16 Temperature Pulse Rate 70 70 67 Pulse Rate [ Apical] Pulse Rate [ Left Dorsalis Pedis] Respiratory 18 12 18 Rate Blood Pressure 131/66 131/66 131/66 O2 Sat by Pulse 96 95 95 Oximetry 11/08/17 11/08/17 11/08/17 01:30 01:45 02:00 Temperature Pulse Rate 66 68 70 Pulse Rate [ Apical] Pulse Rate [ Left Dorsalis Pedis] Respiratory 17 14 22 Rate Blood Pressure 131/66 131/71 125/62 O2 Sat by Pulse 94 95 95 Oximetry 11/08/17 11/08/17 11/08/17 02:15 02:30 02:45 Temperature Pulse Rate 69 70 66 Pulse Rate [ Apical] Pulse Rate [ Left Dorsalis Pedis] Respiratory 15 22 15 Rate Blood Pressure 133/68 122/73 123/73 O2 Sat by Pulse 94 94 95 Oximetry 11/08/17 11/08/17 11/08/17 03:00 03:16 03:30 Temperature Pulse Rate 66 78 63 Pulse Rate [ Apical] Pulse Rate [ Left Dorsalis Pedis] Respiratory 15 16 18 Rate Blood Pressure 117/62 99/66 120/84 O2 Sat by Pulse 94 96 95 Oximetry 11/08/17 11/08/17 11/08/17 03:45 04:00 04:15 Temperature Pulse Rate 62 60 60 Pulse Rate [ 66 Apical] Pulse Rate [ Left Dorsalis Pedis] Respiratory 13 15 16 Rate Blood Pressure 126/78 132/69 122/70 O2 Sat by Pulse 95 94 94 Oximetry 11/08/17 11/08/17 11/08/17 04:30 04:45 05:00 Temperature Pulse Rate 73 63 62 Pulse Rate [ Apical] Pulse Rate [ Left Dorsalis Pedis] Respiratory 13 19 24 Rate Blood Pressure 122/70 137/71 147/79 O2 Sat by Pulse 96 95 Oximetry 11/08/17 11/08/17 11/08/17 05:15 05:30 05:45 Temperature Pulse Rate 60 61 61 Pulse Rate [ Apical] Pulse Rate [ Left Dorsalis Pedis] Respiratory 23 20 21 Rate Blood Pressure 143/77 148/79 148/80 O2 Sat by Pulse 95 95 97 Oximetry 11/08/17 11/08/17 11/08/17 06:00 06:15 06:30 Temperature Pulse Rate 61 62 62 Pulse Rate [ 74 Apical] Pulse Rate [ Left Dorsalis Pedis] Respiratory 23 24 19 Rate Blood Pressure 148/80 144/79 141/80 O2 Sat by Pulse 96 96 95 Oximetry 11/08/17 11/08/17 11/08/17 06:45 07:00 07:16 Temperature Pulse Rate 61 59 L 63 Pulse Rate [ Apical] Pulse Rate [ Left Dorsalis Pedis] Respiratory 20 16 18 Rate Blood Pressure 140/75 130/71 135/74 O2 Sat by Pulse 96 96 96 Oximetry 11/08/17 11/08/17 11/08/17 07:30 07:45 07:50 Temperature 98.6 F Pulse Rate 62 61 Pulse Rate [ 70 Apical] Pulse Rate [ 62 Left Dorsalis Pedis] Respiratory 15 23 Rate Blood Pressure 141/75 142/75 O2 Sat by Pulse 95 96 Oximetry 11/08/17 08:00 Temperature Pulse Rate 66 Pulse Rate [ Apical] Pulse Rate [ Left Dorsalis Pedis] Respiratory 24 Rate Blood Pressure 145/83 O2 Sat by Pulse 96 Oximetry - Lab 11/07/17 06:05 11/08/17 04:20 Most recent lab results Calcium 7.3 mg/dL (8.4-10.2) L 11/08/17 04:20 Phosphorus 4.80 mg/dL (2.5-4.5) H 11/08/17 04:20 Magnesium 1.90 mg/dL (1.7-2.3) 11/08/17 04:20 Urine Creatinine 105.3 mg/dL (0.1-20.0) H 11/07/17 Unknown Urine Sodium 76 mmol/L 11/07/17 Unknown Urine Total Protein 250 mg/dL (5-11.8) H 11/07/17 13:08
[2017-11-08 08:38] LABS: Creatine Kinase MB 3.3 ng/mL (0.0-4.0)
[2017-11-08] MEDS: ECOTRIN PO SCH (09:01)
--- NOTE | 2017-11-08 10:16 | Consultation ---
History of Present Illness - Reason for Consult Consult date: 11/08/17 Bradycardia with hypotension Requesting physician: BRIDGET COLVIN - History of Present Illness 42 female with history of CAD, diabetes, transferred to the ICU for a junctional bradycardic rhythm. Ultimately patient taken to color laboratory technician and had a pacemaker placed through the right IJ. She required levophed briefly but this has since been weaned off. She is awake alert and oriented. On room air speaking with case management. Past History Past Medical History: CAD, diabetes, hypertension Medications and Allergies Allergies Allergy/AdvReac Type Severity Reaction Status Date / Time No Known Allergies Allergy Verified 10/10/13 01:16 Home Medications Medication Instructions Recorded Confirmed Last Taken Type Apixaban [Eliquis] 2.5 mg PO BID 60 Days tablet 07/22/16 11/06/17 11/05/17 Rx Insulin Glargine,Hum.rec.anlog 20 unit SQ QHS #30 07/22/16 11/06/17 11/05/17 Rx [Lantus Solostar] hydrALAZINE [Apresoline TAB] 15 mg PO Q8HR 09/16/16 11/06/17 11/05/17 History Aspirin EC [Aspirin Enteric Coated 81 mg PO QDAY tablet 10/12/16 11/06/1711/05 Rx TAB] Lispro Insulin [Humalog] 15 unit SQ BID 11/06/17 11/06/17 11/05/17 History Active Meds: Active Medications Aspirin (Ecotrin) 325 mg PO QDAY [facility] Last Admin: 11/08/17 09:01 Dose: 325 mg Atorvastatin Calcium (Lipitor) 20 mg PO QHS [facility] Last Admin: 11/07/17 21:58 Dose: 20 mg Heparin Sodium (Porcine) (Heparin) 5,000 unit SUB-Q Q8HR [facility] Last Admin: 11/08/17 05:45 Dose: 5,000 unit Norepinephrine (Levophed Drip 4 Mg/Ns 250 Ml) 4 mg in 250 mls @ 7.5 mls/hr IV TITR [facility]; Protocol Last Titration: 11/07/17 18:00 Dose: 15 mcg/min, 56.25 mls/hr Insulin Glargine (Lantus) 20 units SUB-Q QHS [facility] Last Admin: 11/07/17 21:58 Dose: 20 units Ondansetron HCl (Zofran) 4 mg IV Q6H PRN PRN Reason: Nausea And Vomiting Last Admin: 11/07/17 15:55 Dose: 4 mg Sodium Chloride (Sodium Chloride Flush Syringe 10 Ml) 10 ml IV PRN PRN PRN Reason: LINE FLUSH Review of Systems All systems: negative Exam - Constitutional Vitals: Temp Pulse Resp BP Pulse Ox 98.6 F 66 11 L 136/72 95 11/08/17 07:50 11/08/17 08:46 11/08/17 08:46 11/08/17 08:46 11/08/17 08:46 General appearance: Present: no acute distress, well-nourished - EENT Eyes: Present: PERRL, EOM intact ENT: hearing intact, clear oral mucosa - Neck Neck: Present: supple, normal ROM - Respiratory Respiratory effort: normal Respiratory: bilateral: CTA - Extremities Extremities: no ischemia, No edema - Abdominal General gastrointestinal: Present: soft, non-tender, non-distended Female genitourinary: Present: deferred - Rectal Rectal Exam: deferred - Integumentary Integumentary: Present: clear, warm, dry Results - Labs CBC & Chem 7: 11/07/17 06:05 11/09/17 10:19 Labs: Abnormal lab results 11/07/17 11/07/17 11/07/17 Range/Units 12:05 13:08 13:22 Carbon Dioxide (22-30) mmol/L BUN (7-17) mg/dL Creatinine (0.7-1.2) mg/dL POC Glucose 148 H 162 H (70-105) Calcium (8.4-10.2) mg/dL Phosphorus (2.5-4.5) mg/dL CK-MB (CK-2) Rel Index (0-4) Urine WBC (Auto) (0.0-6.0) /HPF Urine Creatinine 50.0 H (0.1-20.0) mg/dL Urine Microalbumin (0.1-34.0) mg/dL Urine Total Protein 250 H (5-11.8) mg/dL 11/07/17 11/07/17 11/07/17 Range/Units 17:03 17:55 20:16 Carbon Dioxide (22-30) mmol/L BUN (7-17) mg/dL Creatinine (0.7-1.2) mg/dL POC Glucose 264 H 250 H (70-105) Calcium (8.4-10.2) mg/dL Phosphorus (2.5-4.5) mg/dL CK-MB (CK-2) Rel Index 5.0 H (0-4) Urine WBC (Auto) (0.0-6.0) /HPF Urine Creatinine (0.1-20.0) mg/dL Urine Microalbumin (0.1-34.0) mg/dL Urine Total Protein (5-11.8) mg/dL 11/07/17 11/07/17 11/08/17 Range/Units Unknown Unknown 04:20 Carbon Dioxide 18 L (22-30) mmol/L BUN 42 H (7-17) mg/dL Creatinine 3.9 H (0.7-1.2) mg/dL POC Glucose (70-105) Calcium 7.3 L (8.4-10.2) mg/dL Phosphorus 4.80 H (2.5-4.5) mg/dL CK-MB (CK-2) Rel Index (0-4) Urine WBC (Auto) 10.0 H (0.0-6.0) /HPF Urine Creatinine 105.3 H (0.1-20.0) mg/dL Urine Microalbumin 382.1 H (0.1-34.0) mg/dL Urine Total Protein (5-11.8) mg/dL 11/08/17 Range/Units 05:48 Carbon Dioxide (22-30) mmol/L BUN (7-17) mg/dL Creatinine (0.7-1.2) mg/dL POC Glucose 131 H (70-105) Calcium (8.4-10.2) mg/dL Phosphorus (2.5-4.5) mg/dL CK-MB (CK-2) Rel Index (0-4) Urine WBC (Auto) (0.0-6.0) /HPF Urine Creatinine (0.1-20.0) mg/dL Urine Microalbumin (0.1-34.0) mg/dL Urine Total Protein (5-11.8) mg/dL Assessment and Plan 42 y/o female with symptomatic bradycardia. Continue TVP per cards recs Monitor hemodynamics
--- NOTE | 2017-11-08 12:24 | Progress Note ---
Assessment and Plan Assessment and plan: Chest pain, resolved -serial cardiac enzymes neg -no further testing per cardiology -cont medical mgx except BB due to bradycardia Acute on CKD stage 3 -on IVF -cr level continues to trend up, will monitor -Renal ultrasound neg for hydronephrosis -Nephrology following Symptomatic bradycardia -s/p atropine -s/p pacemaker placement Ischemic CM -echo showed EF of 35-40% with severe pul HTN and severe TR -cardiology following Hypotension -off levophed -BP stable IDDM2 -BG controlled History of PAfib -rate controlled -eliquis on hold Thickened gall bladder per CT abdomen/pelvis -abdominal USS recommended for further eval Disp: d/c when medically stable and cleared by cardiology. History Interval history: Patient initially admitted for chest pain and subsequently developed symptomatic bradycardia and hypotension. She denies chest pain, shortness of breath, nausea, vomiting, or abdominal pain. Hospitalist Physical - Constitutional Vitals: Temp Pulse Resp BP Pulse Ox 98.4 F 67 12 146/81 96 11/08/17 11:43 11/08/17 12:00 11/08/17 12:00 11/08/17 12:00 11/08/17 12:00 General appearance: Present: no acute distress - EENT Eyes: Present: PERRL ENT: clear oral mucosa - Neck Neck: Present: supple - Respiratory Respiratory effort: normal Respiratory: bilateral: CTA - Cardiovascular Rhythm: regular Heart Sounds: Present: S1 & S2 - Extremities Extremities: No edema - Abdominal General gastrointestinal: soft, non-tender, non-distended, normal bowel sounds - Neurologic Neurologic: CNII-XII intact Results - Labs CBC & Chem 7: 11/07/17 06:05 11/08/17 04:20 Labs: Laboratory Last Values WBC 5.9 K/mm3 (4.5-11.0) 11/07/17 06:05 RBC 3.54 M/mm3 (3.65-5.03) L 11/07/17 06:05 Hgb 11.0 gm/dl (10.1-14.3) 11/07/17 06:05 Hct 33.4 % (30.3-42.9) D 11/07/17 06:05 MCV 94 fl (79-97) 11/07/17 06:05 MCH 31 pg (28-32) 11/07/17 06:05 MCHC 33 % (30-34) 11/07/17 06:05 RDW 14.2 % (13.2-15.2) 11/07/17 06:05 Plt Count 182 K/mm3 (140-440) 11/07/17 06:05 Lymph % (Auto) 34.9 % (13.4-35.0) 11/07/17 06:05 [place] % (Auto) 5.1 % (0.0-7.3) 11/07/17 06:05 Eos % (Auto) 2.8 % (0.0-4.3) 11/07/17 06:05 Baso % (Auto) 0.9 % (0.0-1.8) 11/07/17 06:05 Lymph # 2.1 K/mm3 (1.2-5.4) 11/07/17 06:05 [place] # 0.3 K/mm3 (0.0-0.8) 11/07/17 06:05 Eos # 0.2 K/mm3 (0.0-0.4) 11/07/17 06:05 Baso # 0.1 K/mm3 (0.0-0.1) 11/07/17 06:05 Seg Neutrophils % 56.3 % (40.0-70.0) 11/07/17 06:05 Seg Neutrophils # 3.3 K/mm3 (1.8-7.7) 11/07/17 06:05 PT 13.5 Sec. (12.2-14.9) 11/06/17 09:52 INR 0.98 (0.87-1.13) 11/06/17 09:52 APTT 30.6 Sec. (24.2-36.6) 11/06/17 09:52 Sodium 141 mmol/L (137-145) 11/08/17 04:20 Potassium 4.9 mmol/L (3.6-5.0) D 11/08/17 04:20 Chloride 105.8 mmol/L (98-107) 11/08/17 04:20 Carbon Dioxide 18 mmol/L (22-30) L 11/08/17 04:20 Anion Gap 22 mmol/L 11/08/17 04:20 BUN 42 mg/dL (7-17) H 11/08/17 04:20 Creatinine 3.9 mg/dL (0.7-1.2) H 11/08/17 04:20 Estimated GFR 13 ml/min 11/08/17 04:20 BUN/Creatinine Ratio 11 % 11/08/17 04:20 Glucose 98 mg/dL (65-100) 11/08/17 04:20 POC Glucose 84 (70-105) 11/08/17 12:15 Hemoglobin A1c 7.0 % (4-6) H 11/06/17 10:33 Calcium 7.3 mg/dL (8.4-10.2) L 11/08/17 04:20 Phosphorus 4.80 mg/dL (2.5-4.5) H 11/08/17 04:20 Magnesium 1.90 mg/dL (1.7-2.3) 11/08/17 04:20 Total Bilirubin 0.30 mg/dL (0.1-1.2) 11/07/17 06:05 Direct Bilirubin < 0.2 mg/dL (0-0.2) 11/06/17 09:52 Indirect Bilirubin 0.2 mg/dL 11/06/17 09:52 AST 7 units/L (5-40) 11/07/17 06:05 ALT 6 units/L (7-56) L 11/07/17 06:05 Alkaline Phosphatase 66 units/L (35-129) 11/07/17 06:05 Total Creatine Kinase 82 units/L (30-135) 11/08/17 07:41 CK-MB (CK-2) 3.3 ng/mL (0.0-4.0) 11/08/17 07:41 CK-MB (CK-2) Rel Index 4.0 (0-4) 11/08/17 07:41 Troponin T 0.015 ng/mL (0.00-0.029) 11/08/17 07:41 NT-Pro-B Natriuret Pep 02498 pg/mL (0-450) H 11/06/17 09:52 Total Protein 5.1 g/dL (6.3-8.2) L 11/07/17 06:05 Albumin 2.4 g/dL (3.9-5) L 11/07/17 06:05 Albumin/Globulin Ratio 0.9 % 11/07/17 06:05 Triglycerides 93 mg/dL (2-149) 11/06/17 09:52 Cholesterol 156 mg/dL (50-199) 11/06/17 09:52 LDL Cholesterol Direct 103 mg/dL (50-130) 11/06/17 09:52 HDL Cholesterol 48 mg/dL (40-59) 11/06/17 09:52 Cholesterol/HDL Ratio 3.25 % 11/06/17 09:52 Urine Color Yellow (Yellow) 11/07/17 Unknown Urine Turbidity Clear (Clear) 11/07/17 Unknown Urine pH 6.0 (5.0-7.0) 11/07/17 Unknown Ur Specific [place] 1.015 (1.003-1.030) 11/07/17 Unknown Urine Protein >500 mg/dL (Negative) 11/07/17 Unknown Urine Glucose (UA) 150 mg/dL (Negative) 11/07/17 Unknown Urine Ketones Neg mg/dL (Negative) 11/07/17 Unknown Urine Blood Neg (Negative) 11/07/17 Unknown Urine Nitrite Neg (Negative) 11/07/17 Unknown Urine Bilirubin Neg (Negative) 11/07/17 Unknown Urine Urobilinogen < 2.0 mg/dL (<2.0) 11/07/17 Unknown Ur Leukocyte Esterase Neg (Negative) 11/07/17 Unknown Urine WBC (Auto) 10.0 /HPF (0.0-6.0) H 11/07/17 Unknown Urine RBC (Auto) 2.0 /HPF (0.0-6.0) 11/07/17 Unknown Urine Mucus Few /HPF 11/07/17 Unknown Urine Creatinine 105.3 mg/dL (0.1-20.0) H 11/07/17 Unknown Urine Microalbumin 382.1 mg/dL (0.1-34.0) H 11/07/17 Unknown Microalb/Creat Ratio 3628.6 ug/mg 11/07/17 Unknown Urine Sodium 76 mmol/L 11/07/17 Unknown Urine Total Protein 250 mg/dL (5-11.8) H 11/07/17 13:08
[2017-11-08] MEDS ORDERED: D50W (25GM) Syringe IV PRN (12:32)
[2017-11-08] MEDS: HumaLOG SUB-Q SCH ×2 (13:13→16:18)
--- NOTE | 2017-11-08 15:01 | Progress Note ---
Assessment and Plan Chest Pain, atypical No ECG changes when compared to previous study Cardiac enzymes are negative x 2 Junctional Bradycardia, resolved Hypotension, now off pressors s/p TVP via right IJ CAD s/p PCI to RCA 06/2016 with a 4.0 AGA 08/2017 thallium stress test that reports a large, fixed defect on the lateral wall of the left ventricle, with no reversibility. This appears consistent with a prior lateral infarct. 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 Echo 05/2016 - normal LVEF Paroxysmal atrial fibrillation on eliquis as an outpatient, currently on hold Chronic renal failure Hypertriglyceridemia History of CVA Systemic Hypertension Type II DM Subjective Date of service: 11/08/17 Principal diagnosis: kidney injury superimposed on chronic kidney disease Interval history: Patient is resting in bed comfortably. She is status post TVP overnight. Currently in sinus rhythm, rate 67, without need of backup pacing. Objective Vital Signs Temp Pulse Pulse Pulse Resp BP Pulse Ox 11/08/17 13:00 67 23 151/78 95 11/08/17 12:46 68 22 144/77 95 11/08/17 12:30 66 20 140/83 97 11/08/17 12:15 68 10 L 146/84 98 11/08/17 12:00 67 12 146/81 96 11/08/17 11:46 68 10 L 147/72 96 11/08/17 11:43 98.4 F 11/08/17 11:30 68 13 135/84 96 11/08/17 11:15 67 15 141/74 97 11/08/17 11:00 67 16 148/79 97 11/08/17 10:46 71 11 L 148/79 97 11/08/17 10:30 72 18 148/79 96 11/08/17 10:15 69 26 H 134/74 97 11/08/17 10:00 67 24 144/82 97 11/08/17 09:45 67 23 143/78 96 11/08/17 09:30 69 29 H 153/75 96 11/08/17 09:16 70 14 148/80 95 11/08/17 09:00 71 18 146/83 96 11/08/17 08:46 66 11 L 136/72 95 11/08/17 08:30 64 15 144/75 96 11/08/17 08:15 62 25 H 141/72 96 11/08/17 08:00 66 24 145/83 96 11/08/17 07:50 98.6 F 11/08/17 07:45 61 70 62 23 142/75 96 11/08/17 07:30 62 15 141/75 95 11/08/17 07:16 63 18 135/74 96 11/08/17 07:00 59 L 16 130/71 96 11/08/17 06:45 61 20 140/75 96 11/08/17 06:30 62 19 141/80 95 11/08/17 06:15 62 24 144/79 96 11/08/17 06:00 61 74 23 148/80 96 11/08/17 05:45 61 21 148/80 97 11/08/17 05:30 61 20 148/79 95 11/08/17 05:15 60 23 143/77 95 11/08/17 05:00 62 24 147/79 95 11/08/17 04:45 63 19 137/71 96 11/08/17 04:30 73 13 122/70 11/08/17 04:15 60 16 122/70 94 11/08/17 04:00 60 66 15 132/69 94 11/08/17 03:45 62 13 126/78 95 11/08/17 03:30 63 18 120/84 95 11/08/17 03:16 78 16 99/66 96 11/08/17 03:00 66 15 117/62 94 11/08/17 02:45 66 15 123/73 95 11/08/17 02:30 70 22 122/73 94 11/08/17 02:15 69 15 133/68 94 11/08/17 02:00 70 22 125/62 95 11/08/17 01:45 68 14 131/71 95 11/08/17 01:30 66 17 131/66 94 11/08/17 01:16 67 18 131/66 95 11/08/17 01:00 70 12 131/66 95 11/08/17 00:46 70 18 131/66 96 11/08/17 00:30 70 22 136/74 96 11/08/17 00:16 72 18 131/66 97 11/08/17 00:00 69 70 22 127/68 95 11/07/17 23:45 98.4 F 68 22 130/74 95 11/07/17 23:42 69 16 130/71 95 11/07/17 23:30 69 13 130/71 93 11/07/17 23:15 68 23 124/70 94 11/07/17 23:00 67 22 176/86 94 11/07/17 22:45 69 22 176/86 94 11/07/17 22:30 76 10 L 135/59 92 11/07/17 22:16 69 22 172/82 93 11/07/17 22:00 62 60 17 155/59 95 11/07/17 21:46 64 14 146/71 95 11/07/17 21:30 60 24 146/71 94 11/07/17 21:16 62 19 179/92 96 11/07/17 21:15 98.0 F 11/07/17 21:00 61 17 94 11/07/17 20:55 95 11/07/17 20:16 65 13 105/68 89 11/07/17 20:00 59 L 60 14 109/52 96 11/07/17 19:45 59 L 10 L 112/89 96 11/07/17 19:41 96 11/07/17 18:31 105/68 11/07/17 18:16 52 L 17 112/55 96 11/07/17 18:00 59 L 13 110/61 98 11/07/17 17:46 17 114/57 96 11/07/17 17:30 40 L 14 81/33 98 11/07/17 17:16 47 L 18 78/34 90 11/07/17 17:00 38 L 20 79/31 99 11/07/17 16:46 41 L 17 102/59 99 11/07/17 16:30 46 L 16 102/59 98 11/07/17 16:16 46 L 12 102/59 95 11/07/17 16:00 47 L 17 79/44 95 11/07/17 15:46 37 L 17 79/44 97 11/07/17 15:30 46 L 16 79/44 91 11/07/17 15:16 35 L 16 79/44 94 11/07/17 15:00 35 L 16 79/44 95 - Physical Examination General: No Apparent Distress HEENT: Positive: PERRL Neck: Positive: Other (right IJ TVP) Cardiac: Positive: Reg Rate and Rhythm Lungs: Positive: Decreased Breath Sounds Neuro: Positive: Grossly Intact Extremities: Absent: edema - Labs and Meds Cardiac Enzymes 11/07/17 11/08/17 Range/Units 17:03 07:41 CK-MB (CK-2) 3.1 3.3 (0.0-4.0) ng/mL Comprehensive Metabolic Panel 11/08/17 Range/Units 04:20 Sodium 141 (137-145) mmol/L Potassium 4.9 D (3.6-5.0) mmol/L Chloride 105.8 (98-107) mmol/L Carbon Dioxide 18 L (22-30) mmol/L BUN 42 H (7-17) mg/dL Creatinine 3.9 H (0.7-1.2) mg/dL Glucose 98 (65-100) mg/dL Calcium 7.3 L (8.4-10.2) mg/dL
--- NOTE | 2017-11-08 22:01 | Consultation ---
History of Present Illness - Reason for Consult Consult date: 11/07/17 acute renal failure Requesting physician: MU VALDES - History of Present Illness 32-year-old lady with a history of poorly controlled type 2 diabetes mellitus, hypertension with diabetic retinopathy admitted on account of chest pain. Patient describes chest pain a burning substernal/retrosternal pain which was intermittent lasting a few minutes nonradiating, aggravated by moving around with some relief on lying down. There was no associated numbness or tingling down the arm. No dizziness or diaphoresis. No nausea or vomiting. On presentation blood pressure was as high as 187/104 mmHg. BUN/creatinine was elevated at 40/3.1 mg/dL. Patient is known to our service as she has being hospitalized in the past with acute kidney injury she had a creatinine of 1.5- 1.8 in April 2014 and in August 2017 creatinine was as high as 2.8 mg/dL when she was admitted with chest pain, including VQ scan was negative. 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 denies: smoking (quit smoking 5 years ago. she was smoking as much as 1 pack per day.), alcohol abuse, prescription drug abuse, IV drug use Family history: CAD (mother at age 50 of myocardial infarction. Father is 75 with glaucoma. Brother has heart disease) Medications and Allergies Allergies Allergy/AdvReac Type Severity Reaction Status Date / Time No Known Allergies Allergy Verified 10/10/13 01:16 Home Medications Medication Instructions Recorded Confirmed Last Taken Type Apixaban [Eliquis] 2.5 mg PO BID 60 Days tablet 07/22/16 11/06/17 11/05/17 Rx Insulin Glargine,Hum.rec.anlog 20 unit SQ QHS #30 07/22/16 11/06/17 11/05/17 Rx [Lantus Solostar] hydrALAZINE [Apresoline TAB] 15 mg PO Q8HR 09/16/16 11/06/17 11/05/17 History Aspirin EC [Aspirin Enteric Coated 81 mg PO QDAY tablet 10/12/16 11/06/1711/05 Rx TAB] Lispro Insulin [Humalog] 15 unit SQ BID 11/06/17 11/06/17 11/05/17 History Active Meds: Active Medications Aspirin (Ecotrin) 325 mg PO QDAY [facility] Last Admin: 11/08/17 09:01 Dose: 325 mg Atorvastatin Calcium (Lipitor) 20 mg PO QHS [facility] Last Admin: 11/07/17 21:58 Dose: 20 mg Dextrose (D50w (25gm) Syringe) 50 ml IV PRN PRN PRN Reason: Hypoglycemia Heparin Sodium (Porcine) (Heparin) 5,000 unit SUB-Q Q8HR [facility] Last Admin: 11/08/17 13:13 Dose: 5,000 unit Norepinephrine (Levophed Drip 4 Mg/Ns 250 Ml) 4 mg in 250 mls @ 7.5 mls/hr IV TITR [facility]; Protocol Last Titration: 11/07/17 18:00 Dose: 15 mcg/min, 56.25 mls/hr Insulin Human Lispro (Humalog) 0 unit SUB-Q ACHS [facility]; Protocol Last Admin: 11/08/17 16:18 Dose: Not Given Ondansetron HCl (Zofran) 4 mg IV Q6H PRN PRN Reason: Nausea And Vomiting Last Admin: 11/07/17 15:55 Dose: 4 mg Sodium Chloride (Sodium Chloride Flush Syringe 10 Ml) 10 ml IV PRN PRN PRN Reason: LINE FLUSH Review of Systems All systems: negative (Constitutional: no fever or chills. No anorexia or weight loss. HEENT: No sore throat or sinus drainage no hearing or vision impairment . Cardiovascular: See history of present illness Respiratory: No cough, sputum, shortness of breath, hemoptysis or wheezing. Gastrointestinal: No nausea, vomiting, diarrhea, abdominal pain, hematemesis or melena. Genitourinary: No frequency urgency dysuria or hematuria. hematologic: No abnormal bleeding admits to easy bruising. Integumentary: no pruritus or rash. Neurological: No headache no focal weakness or numbness, no syncope or seizures. Musculoskeletal: Admits to joint pains and stiffness in her legs Psychiatry: no anxiety or depression) Exam - Vital Signs Vital signs: Vital Signs Temp Pulse Resp BP Pulse Ox 98.7 F 72 17 187/104 99 11/06/17 00:38 11/06/17 00:38 11/06/17 00:38 11/06/17 00:38 11/06/17 00:38 - Physical Exam Narrative exam: Middle-aged female lying in bed in no acute distress HEENT: NCAT, pink oral mucous membrane Neck: Supple, no venous distention CVS: S1S2 RRR with no murmur, rub or gallop Chest: Clear to auscultation Abdomen: Protuberant, soft, nontender, no organomegaly, bowel sounds are present Extremities: No edema Neuro: Awake, alert no focal deficits Results - Lab Results 11/07/17 06:05 11/08/17 04:20 Most recent lab results Calcium 7.3 mg/dL (8.4-10.2) L 11/08/17 04:20 Phosphorus 4.80 mg/dL (2.5-4.5) H 11/08/17 04:20 Magnesium 1.90 mg/dL (1.7-2.3) 11/08/17 04:20 Urine Creatinine 105.3 mg/dL (0.1-20.0) H 11/07/17 Unknown Urine Sodium 76 mmol/L 11/07/17 Unknown Urine Total Protein 250 mg/dL (5-11.8) H 11/07/17 13:08 Assessment and Plan - Patient Problems (1) Other acute kidney failure Current Visit: Yes Status: Acute Plan to address problem: Acute kidney injury prerenal azotemia versus acute tubular necrosis secondary to hypotension versus progressive chronic kidney disease. Kidney function still a bit worse than previous. Get urine studies and kidney. FOLLOW-UP ELECTROLYTES AND RENAL FUNCTION (2) Hypotension Current Visit: Yes Status: Acute Plan to address problem: Hold GRIS inhibitor and put parameters to hold beta bao. Cautious Volume resuscitation to avoid volume overload. (3) Bradycardia Current Visit: Yes Status: Acute Plan to address problem: Parameters to hold beta bao. I instructed The nurses to call rapid response. Needs Cardiology re-evaluation (4) Type 2 diabetes mellitus with diabetic nephropathy Current Visit: Yes Status: Acute Plan to address problem: Blood sugar management by primary attending (5) Chronic renal insufficiency, stage III (moderate) Current Visit: Yes Status: Acute Plan to address problem: Probable diabetic nephropathy given history of retinopathy. Will quantify proteinuria and if in the nephrotic range would even be more suggestive (6) CAD (coronary artery disease) Current Visit: Yes Status: Chronic Qualifiers: Coronary Disease-Associated Artery/Lesion type: [place] artery [place] vs. transplanted heart: [place] heart Associated angina: with stable angina Qualified Code(s): I25.118 - Atherosclerotic heart disease of [place] coronary artery with other forms of angina pectoris Plan to address problem: Per cardiology (7) Hypertensive chronic kidney disease with stage 1 through stage 4 chronic kidney disease, or unspecified chronic kidney disease Current Visit: Yes Status: Acute
--- NOTE | 2017-11-09 00:02 | Procedure Note ---
TRANSVENOUS PACEMAKER INSERTION INDICATION: Junctional bradycardia and hypotension. DESCRIPTION OF PROCEDURE: After obtaining the consent, the patient was draped using sterile technique. A 2% lidocaine was injected into the right side of the neck. Using ultrasound guidance, the right internal jugular vein was cannulated using a micropuncture technique. A 6-[place] vascular sheath was inserted. A 6-[place] transvenous pacemaker wire balloon tipped was inserted and positioned inside the right ventricle. Capture was documented. Settings were programmed at 60 beats per minute with a current of 5 milliampere and a sensitivity of 3 millivolt. No complications occurred during the procedure. Estimated blood loss was minimal. SPECIMEN REMOVED: None. IMPRESSION: Successful placement of a transvenous pacemaker. RECOMMENDATION: 1. Continue to monitor overnight. 2. Continue to hold Eliquis just in case patient will require a permanent pacemaker in the near future. JOB# [id number] [place]/ANI
[2017-11-09] MEDS: HumaLOG SUB-Q SCH ×4 (00:35→22:38)
[2017-11-09] MEDS: HEPARIN SUB-Q SCH ×2 (07:17→13:15)
--- NOTE | 2017-11-09 08:43 | Progress Note ---
Assessment and Plan - Patient Problems (1) Acute renal failure with tubular necrosis Current Visit: Yes Status: Acute Plan to address problem: Probably acute tubular necrosis secondary to hypotension. Labs are pending this morning. Kidney function had not started improving yesterday. Follow-up electrolytes and renal function (2) Bradycardia Current Visit: Yes Status: Acute Plan to address problem: Transvenous Pacer intact. Patient is off of bao and blood pressure has improved (3) Chronic renal insufficiency, stage III (moderate) Current Visit: Yes Status: Acute Plan to address problem: Probable diabetic nephropathy given history of retinopathy. Will quantify proteinuria and if in the nephrotic range would even be more suggestive (4) Hypertensive chronic kidney disease with stage 1 through stage 4 chronic kidney disease, or unspecified chronic kidney disease Current Visit: Yes Status: Acute Plan to address problem: Blood pressure is now high. We will start hydralazine and follow blood pressure (5) Hypotension Current Visit: Yes Status: Acute Plan to address problem: GRIS inhibitor and beta bao on hold (6) Type 2 diabetes mellitus with diabetic nephropathy Current Visit: Yes Status: Acute Plan to address problem: Blood sugar management by primary attending Subjective Date of service: 11/09/17 Principal diagnosis: Acute kidney injury Interval history: Patient seen lying in bed. She feels better today. Denies chest pain, shortness of breath, nausea, vomiting or dizziness. Objective - Exam Narrative Exam: Middle-aged female lying in bed in no acute distress HEENT: NCAT, pink oral mucous membrane Neck: Supple, no venous distention. Transvenous pacer intact CVS: S1S2 RRR with no murmur, rub or gallop Chest: Clear to auscultation Abdomen: Protuberant, soft, nontender, no organomegaly, bowel sounds are present Extremities: No edema Neuro: Awake, alert no focal deficits - Vital Signs Vital signs: Vital Signs - 12hr 11/08/17 11/08/17 11/08/17 20:46 21:00 21:16 Temperature Pulse Rate 71 70 71 Pulse Rate [ Left Dorsalis Pedis] Respiratory 13 28 H 28 H Rate Blood Pressure 166/94 166/94 166/94 O2 Sat by Pulse 95 96 95 Oximetry 11/08/17 11/08/17 11/08/17 21:30 21:46 22:00 Temperature Pulse Rate 68 71 71 Pulse Rate [ 89 Left Dorsalis Pedis] Respiratory 24 24 20 Rate Blood Pressure 166/94 166/94 166/94 O2 Sat by Pulse 97 97 95 Oximetry 11/08/17 11/08/17 11/08/17 22:16 22:30 22:45 Temperature Pulse Rate 79 77 64 Pulse Rate [ Left Dorsalis Pedis] Respiratory 12 16 13 Rate Blood Pressure 166/94 172/121 180/99 O2 Sat by Pulse 93 91 97 Oximetry 11/08/17 11/08/17 11/08/17 23:00 23:15 23:30 Temperature Pulse Rate 70 69 66 Pulse Rate [ Left Dorsalis Pedis] Respiratory 24 13 26 H Rate Blood Pressure 168/92 173/99 166/91 O2 Sat by Pulse 96 98 96 Oximetry 11/08/17 11/09/17 11/09/17 23:46 00:00 00:15 Temperature 98.0 F Pulse Rate 73 62 61 Pulse Rate [ 89 Left Dorsalis Pedis] Respiratory 15 22 21 Rate Blood Pressure 145/76 183/92 166/94 O2 Sat by Pulse 86 100 96 Oximetry 11/09/17 11/09/17 11/09/17 00:30 00:45 01:00 Temperature Pulse Rate 63 62 62 Pulse Rate [ Left Dorsalis Pedis] Respiratory 15 19 16 Rate Blood Pressure 163/94 160/90 156/86 O2 Sat by Pulse 96 97 96 Oximetry 11/09/17 11/09/17 11/09/17 01:16 01:30 01:45 Temperature Pulse Rate 62 63 63 Pulse Rate [ Left Dorsalis Pedis] Respiratory 18 17 19 Rate Blood Pressure 166/96 163/89 164/99 O2 Sat by Pulse 96 95 97 Oximetry 11/09/17 11/09/17 11/09/17 02:00 02:15 02:30 Temperature Pulse Rate 67 62 62 Pulse Rate [ 89 Left Dorsalis Pedis] Respiratory 18 18 17 Rate Blood Pressure 172/106 177/99 173/98 O2 Sat by Pulse 97 96 96 Oximetry 11/09/17 11/09/17 11/09/17 02:45 03:00 03:15 Temperature Pulse Rate 59 L 59 L 59 L Pulse Rate [ Left Dorsalis Pedis] Respiratory 17 18 17 Rate Blood Pressure 174/90 174/90 146/90 O2 Sat by Pulse 95 96 95 Oximetry 04/13/18 04/13/18 04/13/18 03:30 03:46 04:00 Temperature 98.1 F Pulse Rate 59 L 68 59 L Pulse Rate [ 89 Left Dorsalis Pedis] Respiratory 17 18 19 Rate Blood Pressure 147/90 136/88 136/88 O2 Sat by Pulse 96 97 97 Oximetry 11/09/17 11/09/17 11/09/17 04:15 04:30 04:45 Temperature Pulse Rate 66 64 61 Pulse Rate [ Left Dorsalis Pedis] Respiratory 16 18 16 Rate Blood Pressure 182/107 185/100 177/98 O2 Sat by Pulse 97 94 95 Oximetry 11/09/17 11/09/17 11/09/17 05:00 05:16 05:30 Temperature Pulse Rate 63 62 60 Pulse Rate [ Left Dorsalis Pedis] Respiratory 19 19 17 Rate Blood Pressure 151/88 137/84 154/91 O2 Sat by Pulse 96 95 96 Oximetry 11/09/17 11/09/17 11/09/17 05:45 06:00 06:15 Temperature Pulse Rate 59 L 62 60 Pulse Rate [ 63 Left Dorsalis Pedis] Respiratory 19 17 16 Rate Blood Pressure 152/85 169/97 168/102 O2 Sat by Pulse 95 96 96 Oximetry 11/09/17 11/09/17 11/09/17 06:30 06:45 07:00 Temperature Pulse Rate 59 L 59 L 59 L Pulse Rate [ Left Dorsalis Pedis] Respiratory 14 16 15 Rate Blood Pressure 176/97 168/92 168/92 O2 Sat by Pulse 96 97 95 Oximetry 11/09/17 11/09/17 11/09/17 07:16 07:30 07:46 Temperature Pulse Rate 59 L 63 59 L Pulse Rate [ Left Dorsalis Pedis] Respiratory 20 16 18 Rate Blood Pressure 168/92 161/86 161/86 O2 Sat by Pulse 97 97 98 Oximetry 11/09/17 11/09/17 08:00 08:21 Temperature 97.6 F Pulse Rate 72 Pulse Rate [ 61 Left Dorsalis Pedis] Respiratory 16 Rate Blood Pressure 179/101 O2 Sat by Pulse 99 Oximetry - Lab 11/07/17 06:05 11/08/17 04:20 Most recent lab results Calcium 7.3 mg/dL (8.4-10.2) L 11/08/17 04:20 Phosphorus 4.80 mg/dL (2.5-4.5) H 11/08/17 04:20 Magnesium 1.90 mg/dL (1.7-2.3) 11/08/17 04:20 Urine Creatinine 105.3 mg/dL (0.1-20.0) H 11/07/17 Unknown Urine Sodium 76 mmol/L 11/07/17 Unknown Urine Total Protein 250 mg/dL (5-11.8) H 11/07/17 13:08
[2017-11-09] MEDS: ECOTRIN PO SCH (09:39)
--- NOTE | 2017-11-09 10:37 | Progress Note ---
Assessment and Plan Chest Pain, atypical No ECG changes when compared to previous study Cardiac enzymes are negative x 2 Junctional Bradycardia, resolved Hypotension, resolved s/p TVP via right IJ - discontinued 11/09/2017 CAD s/p PCI to RCA 06/2016 with a 4.0 AGA 08/2017 thallium stress test that reports a large, fixed defect on the lateral wall of the left ventricle, with no reversibility. This appears consistent with a prior lateral infarct. 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 Echo 05/2016 - normal LVEF Paroxysmal atrial fibrillation on eliquis Acute on Chronic renal failure Hypertriglyceridemia History of CVA Systemic Hypertension Type II DM Recommendations: Discontinue TVP Resume eliquis at 2.5 mg po bid Add amlodipine to current regimen Continue hydralazine May transfer to tele Subjective Date of service: 11/09/17 Principal diagnosis: Acute kidney injury Interval history: Patient is doing well Tele is showing SR with no evidence of bradyarrhythmias Objective Vital Signs Temp Pulse Pulse Resp BP Pulse Ox 11/09/17 09:49 60 21 98 11/09/17 09:30 184/104 11/09/17 08:46 62 18 175/102 96 11/09/17 08:30 60 15 175/102 96 11/09/17 08:21 97.6 F 11/09/17 08:16 66 18 179/101 98 11/09/17 08:00 72 61 16 179/101 99 11/09/17 07:46 59 L 18 161/86 98 11/09/17 07:30 63 16 161/86 97 11/09/17 07:16 59 L 20 168/92 97 11/09/17 07:00 59 L 15 168/92 95 11/09/17 06:45 59 L 16 168/92 97 11/09/17 06:30 59 L 14 176/97 96 11/09/17 06:15 60 16 168/102 96 11/09/17 06:00 62 63 17 169/97 96 11/09/17 05:45 59 L 19 152/85 95 11/09/17 05:30 60 17 154/91 96 11/09/17 05:16 62 19 137/84 95 11/09/17 05:00 63 19 151/88 96 11/09/17 04:45 61 16 177/98 95 11/09/17 04:30 64 18 185/100 94 11/09/17 04:15 66 16 182/107 97 11/09/17 04:00 98.1 F 59 L 89 19 136/88 97 11/09/17 03:46 68 18 136/88 97 11/09/17 03:30 59 L 17 147/90 96 11/09/17 03:15 59 L 17 146/90 95 11/09/17 03:00 59 L 18 174/90 96 11/09/17 02:45 59 L 17 174/90 95 11/09/17 02:30 62 17 173/98 96 11/09/17 02:15 62 18 177/99 96 11/09/17 02:00 67 89 18 172/106 97 11/09/17 01:45 63 19 164/99 97 11/09/17 01:30 63 17 163/89 95 11/09/17 01:16 62 18 166/96 96 11/09/17 01:00 62 16 156/86 96 11/09/17 00:45 62 19 160/90 97 11/09/17 00:30 63 15 163/94 96 11/09/17 00:15 61 21 166/94 96 11/09/17 00:00 98.0 F 62 89 22 183/92 100 11/08/17 23:46 73 15 145/76 86 11/08/17 23:30 66 26 H 166/91 96 11/08/17 23:15 69 13 173/99 98 11/08/17 23:00 70 24 168/92 96 11/08/17 22:45 64 13 180/99 97 11/08/17 22:30 77 16 172/121 91 11/08/17 22:16 79 12 166/94 93 11/08/17 22:00 71 89 20 166/94 95 11/08/17 21:46 71 24 166/94 97 11/08/17 21:30 68 24 166/94 97 11/08/17 21:16 71 28 H 166/94 95 11/08/17 21:00 70 28 H 166/94 96 11/08/17 20:46 71 13 166/94 95 11/08/17 20:30 76 17 166/94 97 11/08/17 20:16 67 13 166/94 97 11/08/17 20:00 72 79 13 166/94 97 11/08/17 19:51 98.7 F 11/08/17 19:46 76 13 166/94 97 11/08/17 19:30 72 11 L 166/94 97 11/08/17 19:16 81 21 166/94 95 11/08/17 19:00 72 15 166/94 96 11/08/17 18:45 67 26 H 151/88 97 11/08/17 18:30 75 12 160/88 98 11/08/17 18:16 25 H 147/80 96 11/08/17 18:00 65 15 138/82 98 11/08/17 17:55 61 98 11/08/17 17:46 71 26 H 158/85 96 11/08/17 17:30 67 22 139/77 97 11/08/17 17:16 71 18 140/68 97 11/08/17 17:00 60 19 154/76 95 11/08/17 16:45 59 L 16 140/68 94 11/08/17 16:30 60 18 131/73 96 11/08/17 16:15 59 L 18 143/71 95 11/08/17 16:00 98.8 F 62 64 20 125/83 96 11/08/17 15:45 61 17 132/77 96 11/08/17 15:30 61 20 145/80 96 11/08/17 15:16 65 21 137/73 95 11/08/17 15:00 62 24 126/77 95 11/08/17 14:45 61 22 151/81 96 11/08/17 14:30 63 20 134/81 91 11/08/17 14:15 63 15 134/81 96 11/08/17 14:00 60 18 149/81 95 11/08/17 13:45 61 27 H 153/82 96 11/08/17 13:30 68 22 152/83 94 11/08/17 13:15 66 25 H 152/81 95 11/08/17 13:00 67 23 151/78 95 11/08/17 12:46 68 22 144/77 95 11/08/17 12:30 66 20 140/83 97 11/08/17 12:15 68 10 L 146/84 98 11/08/17 12:00 67 12 146/81 96 11/08/17 11:46 68 10 L 147/72 96 11/08/17 11:43 98.4 F 11/08/17 11:30 68 13 135/84 96 11/08/17 11:15 67 15 141/74 97 11/08/17 11:00 67 16 148/79 97 11/08/17 10:46 71 11 L 148/79 97 - Physical Examination General: No Apparent Distress HEENT: Positive: PERRL Neck: Positive: Other (right IJ TVP) Cardiac: Positive: Reg Rate and Rhythm Lungs: Positive: Normal Exam Neuro: Positive: Grossly Intact Extremities: Absent: edema
[2017-11-09 10:52] LABS: Calcium 8.2 mg/dL (8.4-10.2)
[2017-11-09] MEDS ORDERED: APRESOLINE IV ONE (12:00)
[2017-11-09] MEDS: APRESOLINE PO SCH ×2 (13:15→21:10)
--- NOTE | 2017-11-09 13:57 | Ultrasound Report ---
ULTRASOUND ABDOMEN INDICATION: Enlarged gallbladder on CT. COMPARISON: 11/07/2017 CT. FINDINGS: Abdominal sonography demonstrates no focal suspicious hepatic lesions or biliary dilatation. Slight diffuse hepatic coarsening, though overall echogenicity within normal limits. Right hepatic lobe prominent/elongated, approximately 19 cm in midclavicular length on prior CT. No gallstones. Minimal gallbladder sludge versus technical artifact. Maximum gallbladder wall thickness up to 6 mm as on axial image 30, though appears lesser elsewhere. Minimal pericholecystic fluid or gallbladder wall edema possible sonographically, though less pronounced than CT appearance. CBD caliber 4.1 mm. Homogenous spleen, 9.8 cm in length. No significant ascites appreciated, though minimal ascites noted anterior to the liver superiorly on recent CT. Right pleural effusion also again seen. Normal imaged pancreas, IVC and abdominal aorta. Mild increased renal cortical echogenicity, more so apparent on the right. No hydronephrosis. Right kidney is 10.3 x 4.7 x 4.8 cm with cortical thickness of 1.2 cm. Left kidney estimated at 8.9 x 4.5 x 4.6 cm with cortical thickness of 1.6 cm. CONCLUSION: 1. Gallbladder wall thickening and minimal pericholecystic fluid appear less pronounced since recent CT. No evidence of gallstones. Sonographic findings hence equivocal for acute cholecystitis, that if suspected may also be correlated for clinically, with laboratory values and/or HIDA, as warranted. 2. Few other findings as prominent/enlarged liver, mild underlying medical renal disease and right pleural effusion in this patient with minimal ascites as well. Thank you for the opportunity to participate in this patient's care.
--- NOTE | 2017-11-09 15:08 | Progress Note ---
Assessment and Plan 42 y/o female with symptomatic bradycardia. 1. TVP removed 2. No pulmonary issues 3. Hemodynamically stable Transfer out of unit. Subjective Date of service: 11/09/17 Principal diagnosis: Acute kidney injury Interval history: TVP removed on this am. Patient has been stable. Objective - Constitutional Vitals: Vital Signs - 12hr 11/09/17 11/09/17 11/09/17 03:15 03:30 03:46 Temperature Pulse Rate 59 L 59 L 68 Pulse Rate [ Left Dorsalis Pedis] Respiratory 17 17 18 Rate Blood Pressure 146/90 147/90 136/88 O2 Sat by Pulse 95 96 97 Oximetry 11/09/17 11/09/17 11/09/17 04:00 04:15 04:30 Temperature 98.1 F Pulse Rate 59 L 66 64 Pulse Rate [ 89 Left Dorsalis Pedis] Respiratory 19 16 18 Rate Blood Pressure 136/88 182/107 185/100 O2 Sat by Pulse 97 97 94 Oximetry 11/09/17 11/09/17 11/09/17 04:45 05:00 05:16 Temperature Pulse Rate 61 63 62 Pulse Rate [ Left Dorsalis Pedis] Respiratory 16 19 19 Rate Blood Pressure 177/98 151/88 137/84 O2 Sat by Pulse 95 96 95 Oximetry 11/09/17 11/09/17 11/09/17 05:30 05:45 06:00 Temperature Pulse Rate 60 59 L 62 Pulse Rate [ 63 Left Dorsalis Pedis] Respiratory 17 19 17 Rate Blood Pressure 154/91 152/85 169/97 O2 Sat by Pulse 96 95 96 Oximetry 11/09/17 11/09/17 11/09/17 06:15 06:30 06:45 Temperature Pulse Rate 60 59 L 59 L Pulse Rate [ Left Dorsalis Pedis] Respiratory 16 14 16 Rate Blood Pressure 168/102 176/97 168/92 O2 Sat by Pulse 96 96 97 Oximetry 11/09/17 11/09/17 11/09/17 07:00 07:16 07:30 Temperature Pulse Rate 59 L 59 L 63 Pulse Rate [ Left Dorsalis Pedis] Respiratory 15 20 16 Rate Blood Pressure 168/92 168/92 161/86 O2 Sat by Pulse 95 97 97 Oximetry 11/09/17 11/09/17 11/09/17 07:46 08:00 08:16 Temperature Pulse Rate 59 L 72 66 Pulse Rate [ 61 Left Dorsalis Pedis] Respiratory 18 16 18 Rate Blood Pressure 161/86 179/101 179/101 O2 Sat by Pulse 98 99 98 Oximetry 11/09/17 11/09/17 11/09/17 08:21 08:30 08:46 Temperature 97.6 F Pulse Rate 60 62 Pulse Rate [ Left Dorsalis Pedis] Respiratory 15 18 Rate Blood Pressure 175/102 175/102 O2 Sat by Pulse 96 96 Oximetry 11/09/17 11/09/17 11/09/17 09:30 09:46 09:49 Temperature Pulse Rate 59 L Pulse Rate [ 60 Left Dorsalis Pedis] Respiratory 18 21 Rate Blood Pressure 184/104 184/104 O2 Sat by Pulse 99 98 Oximetry 11/09/17 11/09/17 11/09/17 10:00 10:16 10:30 Temperature Pulse Rate 79 64 64 Pulse Rate [ Left Dorsalis Pedis] Respiratory 15 16 21 Rate Blood Pressure 182/101 184/104 170/98 O2 Sat by Pulse 98 98 97 Oximetry 11/09/17 11/09/17 11/09/17 10:46 11:00 11:16 Temperature Pulse Rate 65 66 71 Pulse Rate [ Left Dorsalis Pedis] Respiratory 13 9 L 15 Rate Blood Pressure 170/98 183/93 183/93 O2 Sat by Pulse 99 98 99 Oximetry 11/09/17 11/09/17 11/09/17 11:30 11:41 11:46 Temperature Pulse Rate 77 76 70 Pulse Rate [ Left Dorsalis Pedis] Respiratory 21 17 Rate Blood Pressure 145/82 145/82 145/82 O2 Sat by Pulse 98 99 Oximetry 11/09/17 11/09/17 11/09/17 12:00 12:14 12:16 Temperature 98.4 F Pulse Rate 73 77 Pulse Rate [ 66 Left Dorsalis Pedis] Respiratory 19 19 Rate Blood Pressure 150/85 150/85 O2 Sat by Pulse 99 98 Oximetry 11/09/17 11/09/17 11/09/17 12:30 12:46 13:00 Temperature Pulse Rate 75 87 81 Pulse Rate [ Left Dorsalis Pedis] Respiratory 10 L 15 22 Rate Blood Pressure 150/85 153/93 148/79 O2 Sat by Pulse 94 98 98 Oximetry 11/09/17 11/09/17 11/09/17 13:15 13:16 13:30 Temperature Pulse Rate 78 82 80 Pulse Rate [ Left Dorsalis Pedis] Respiratory 17 14 Rate Blood Pressure 148/79 148/79 131/76 O2 Sat by Pulse 99 98 Oximetry 11/09/17 11/09/17 13:46 14:00 Temperature Pulse Rate 81 83 Pulse Rate [ 88 Left Dorsalis Pedis] Respiratory 14 15 Rate Blood Pressure 131/76 131/76 O2 Sat by Pulse 98 97 Oximetry - Labs CBC & Chem 7: 11/07/17 06:05 11/09/17 10:19 Labs: Abnormal lab results 11/09/17 11/09/17 11/09/17 Range/Units 07:18 07:52 10:19 Carbon Dioxide 20 L (22-30) mmol/L BUN 41 H (7-17) mg/dL Creatinine 3.7 H (0.7-1.2) mg/dL Glucose 103 H (65-100) mg/dL POC Glucose 62 L 175 H (70-105) Calcium 8.2 L (8.4-10.2) mg/dL
--- NOTE | 2017-11-09 18:15 | Progress Note ---
Assessment and Plan Assessment and plan: Day 3, which is my first day caring for patient Patient is a 42-year-old woman history of IDDM, hypertension, coronary artery disease status post drug-eluting stent RCA whom I discharged in 2016 after non- STEMI, chronic kidney disease stage III, CVA, dyslipidemia and paroxysmal atrial fibrillation on Eliquis who presented with chest pains and found to have following: -Symptomatic Junctional bradycardia, s/p PPM after transvenous pacing, stable will transfer out of the ICU if ok with Cardiology and CCM -Chest pains, atypical -Hypotension s/p transvenous pacing via right IJ TLC: d/c TLC -P. Afib: continue Eliquis -Acute on CKD stage 3, vasomotor nephropathy, poa: Renal is following, repeat bmp -GB wall thickening: reviewed abd ultrasound, consult Gen. surgery for ?acute cholecysitis, empiric treat with iv abx, -Ischemic CM, echo showed EF of 35-40% with severe pul HTN and severe TR: Cardiology following -Hypotension, cardiogenic shock, poa: off levophed, BP stable -IDDM2: BG controlled -PAfib: rate controlled, eliquis per Cardiology History Interval history: Patient was seen and examined. Follow-up on current diagnosis of chest pain. Overnight uneventful. Patient denies any chest pain, shortness breath, nausea/ vomiting or severe headaches. Imaging, nursing note, chart, labs and old chart reviewed. Discussed with patient. Patient examined in the ICU. Hospitalist Physical - Physical exam Narrative exam: GEN: WDWN, NAD, AWAKE, ALERT, ORIENTATED 3 HEENT: NCAT, EOMI, PERRL, OP Clear NECK: supple, no adenopathy, no thyromegaly, no JVD CVS/HEART: Irregular regular NORMAL S1S2, pulses present bilaterally CHEST/LUNGS: CTA B, Symmetrical chest expansion, good air entry bilaterally GI/Abdomen: soft, NTND, good bowel sounds, no guarding or rebound /Bladder: no suprapubic tenderness, no CVA or paraspinal tenderness EXT/Skin: no c/c/e, no obvious rash MSK: FROM x 4 Neuro: CN 2-12 grossly intact, no new focal deficits Psych: calm - Constitutional Vitals: Temp Pulse Resp BP Pulse Ox 98.4 F 82 18 157/88 99 11/09/17 16:50 11/09/17 16:50 11/09/17 16:50 11/09/17 16:50 11/09/17 16:50 General appearance: Present: no acute distress, well-nourished Results - Labs CBC & Chem 7: 11/07/17 06:05 11/09/17 10:19 Labs: Laboratory Last Values WBC 5.9 K/mm3 (4.5-11.0) 11/07/17 06:05 RBC 3.54 M/mm3 (3.65-5.03) L 11/07/17 06:05 Hgb 11.0 gm/dl (10.1-14.3) 11/07/17 06:05 Hct 33.4 % (30.3-42.9) D 11/07/17 06:05 MCV 94 fl (79-97) 11/07/17 06:05 MCH 31 pg (28-32) 11/07/17 06:05 MCHC 33 % (30-34) 11/07/17 06:05 RDW 14.2 % (13.2-15.2) 11/07/17 06:05 Plt Count 182 K/mm3 (140-440) 11/07/17 06:05 Lymph % (Auto) 34.9 % (13.4-35.0) 11/07/17 06:05 [place] % (Auto) 5.1 % (0.0-7.3) 11/07/17 06:05 Eos % (Auto) 2.8 % (0.0-4.3) 11/07/17 06:05 Baso % (Auto) 0.9 % (0.0-1.8) 11/07/17 06:05 Lymph # 2.1 K/mm3 (1.2-5.4) 11/07/17 06:05 [place] # 0.3 K/mm3 (0.0-0.8) 11/07/17 06:05 Eos # 0.2 K/mm3 (0.0-0.4) 11/07/17 06:05 Baso # 0.1 K/mm3 (0.0-0.1) 11/07/17 06:05 Seg Neutrophils % 56.3 % (40.0-70.0) 11/07/17 06:05 Seg Neutrophils # 3.3 K/mm3 (1.8-7.7) 11/07/17 06:05 PT 13.5 Sec. (12.2-14.9) 11/06/17 09:52 INR 0.98 (0.87-1.13) 11/06/17 09:52 APTT 30.6 Sec. (24.2-36.6) 11/06/17 09:52 Sodium 139 mmol/L (137-145) 11/09/17 10:19 Potassium 5.0 mmol/L (3.6-5.0) 11/09/17 10:19 Chloride 106.7 mmol/L (98-107) 11/09/17 10:19 Carbon Dioxide 20 mmol/L (22-30) L 11/09/17 10:19 Anion Gap 17 mmol/L 11/09/17 10:19 BUN 41 mg/dL (7-17) H 11/09/17 10:19 Creatinine 3.7 mg/dL (0.7-1.2) H 11/09/17 10:19 Estimated GFR 13 ml/min 11/09/17 10:19 BUN/Creatinine Ratio 11 % 11/09/17 10:19 Glucose 103 mg/dL (65-100) H 11/09/17 10:19 POC Glucose 98 (70-105) 11/09/17 11:03 Hemoglobin A1c 7.0 % (4-6) H 11/06/17 10:33 Calcium 8.2 mg/dL (8.4-10.2) L 11/09/17 10:19 Phosphorus 4.80 mg/dL (2.5-4.5) H 11/08/17 04:20 Magnesium 1.90 mg/dL (1.7-2.3) 11/08/17 04:20 Total Bilirubin 0.30 mg/dL (0.1-1.2) 11/07/17 06:05 Direct Bilirubin < 0.2 mg/dL (0-0.2) 11/06/17 09:52 Indirect Bilirubin 0.2 mg/dL 11/06/17 09:52 AST 7 units/L (5-40) 11/07/17 06:05 ALT 6 units/L (7-56) L 11/07/17 06:05 Alkaline Phosphatase 66 units/L (35-129) 11/07/17 06:05 Total Creatine Kinase 82 units/L (30-135) 11/08/17 07:41 CK-MB (CK-2) 3.3 ng/mL (0.0-4.0) 11/08/17 07:41 CK-MB (CK-2) Rel Index 4.0 (0-4) 11/08/17 07:41 Troponin T 0.015 ng/mL (0.00-0.029) 11/08/17 07:41 NT-Pro-B Natriuret Pep 83211 pg/mL (0-450) H 11/06/17 09:52 Total Protein 5.1 g/dL (6.3-8.2) L 11/07/17 06:05 Albumin 2.4 g/dL (3.9-5) L 11/07/17 06:05 Albumin/Globulin Ratio 0.9 % 11/07/17 06:05 Triglycerides 93 mg/dL (2-149) 11/06/17 09:52 Cholesterol 156 mg/dL (50-199) 11/06/17 09:52 LDL Cholesterol Direct 103 mg/dL (50-130) 11/06/17 09:52 HDL Cholesterol 48 mg/dL (40-59) 11/06/17 09:52 Cholesterol/HDL Ratio 3.25 % 11/06/17 09:52 Urine Color Yellow (Yellow) 11/07/17 Unknown Urine Turbidity Clear (Clear) 11/07/17 Unknown Urine pH 6.0 (5.0-7.0) 11/07/17 Unknown Ur Specific [place] 1.015 (1.003-1.030) 11/07/17 Unknown Urine Protein >500 mg/dL (Negative) 11/07/17 Unknown Urine Glucose (UA) 150 mg/dL (Negative) 11/07/17 Unknown Urine Ketones Neg mg/dL (Negative) 11/07/17 Unknown Urine Blood Neg (Negative) 11/07/17 Unknown Urine Nitrite Neg (Negative) 11/07/17 Unknown Urine Bilirubin Neg (Negative) 11/07/17 Unknown Urine Urobilinogen < 2.0 mg/dL (<2.0) 11/07/17 Unknown Ur Leukocyte Esterase Neg (Negative) 11/07/17 Unknown Urine WBC (Auto) 10.0 /HPF (0.0-6.0) H 11/07/17 Unknown Urine RBC (Auto) 2.0 /HPF (0.0-6.0) 11/07/17 Unknown Urine Mucus Few /HPF 11/07/17 Unknown Urine Creatinine 105.3 mg/dL (0.1-20.0) H 11/07/17 Unknown Urine Microalbumin 382.1 mg/dL (0.1-34.0) H 11/07/17 Unknown Microalb/Creat Ratio 3628.6 ug/mg 11/07/17 Unknown Urine Sodium 76 mmol/L 11/07/17 Unknown Urine Total Protein 250 mg/dL (5-11.8) H 11/07/17 13:08
[2017-11-09] MEDS: ZOSYN/NS 2.25 GM/50ML 2.25 GM/50 ML BAG IV SCH (21:01)
[2017-11-09] MEDS: ELIQUIS PO SCH (21:10)
[2017-11-10] MEDS: ZOSYN/NS 2.25 GM/50ML 2.25 GM/50 ML BAG IV SCH ×3 (06:06→22:59)
[2017-11-10] MEDS: APRESOLINE PO SCH ×3 (06:07→23:00)
[2017-11-10 06:09] LABS: Calcium 7.7 mg/dL (8.4-10.2)
[2017-11-10] MEDS: HumaLOG SUB-Q SCH ×4 (08:23→23:01)
[2017-11-10] MEDS: ECOTRIN PO SCH (10:36)
[2017-11-10] MEDS: ELIQUIS PO SCH ×2 (10:37→23:00)
--- NOTE | 2017-11-10 11:45 | Progress Note ---
Assessment and Plan - Patient Problems (1) Bradycardia Current Visit: Yes Status: Acute Plan to address problem: Bradycardia has resolved, cardiovascular status is stable, continue supportive management and medical therapy. Subjective Date of service: 11/10/17 Principal diagnosis: Acute kidney injury Interval history: Patient looks and feels better, no chest pain, no shortness of breath and no further bradycardia. Objective Vital Signs Temp Pulse Pulse Resp BP BP Pulse Ox 11/10/17 09:08 97.8 F 66 16 146/81 97 11/10/17 06:07 60 153/84 11/10/17 04:52 98.6 F 61 18 153/84 11/10/17 00:56 98.1 F 64 20 144/73 96 11/09/17 21:10 66 150/84 11/09/17 16:50 98.4 F 82 18 157/88 99 11/09/17 15:40 80 20 141/78 96 11/09/17 15:30 74 20 131/66 96 11/09/17 15:16 75 20 131/66 97 11/09/17 15:00 86 28 H 131/66 97 11/09/17 14:46 80 18 99 11/09/17 14:30 83 16 135/63 99 11/09/17 14:16 80 13 135/63 98 11/09/17 14:00 83 88 15 131/76 97 11/09/17 13:46 81 14 131/76 98 11/09/17 13:30 80 14 131/76 98 11/09/17 13:16 82 17 148/79 99 11/09/17 13:15 78 148/79 11/09/17 13:00 81 22 148/79 98 11/09/17 12:46 87 15 153/93 98 11/09/17 12:30 75 10 L 150/85 94 11/09/17 12:16 77 19 150/85 98 11/09/17 12:14 98.4 F 11/09/17 12:00 73 66 19 150/85 99 11/09/17 11:46 70 17 145/82 99 - Physical Examination General: Appears Well, No Apparent Distress HEENT: Positive: PERRL Neck: Positive: neck supple, Other (right IJ TVP) Cardiac: Positive: Reg Rate and Rhythm Lungs: Positive: clear to auscultation Neuro: Positive: Grossly Intact Abdomen: Positive: Soft Skin: Positive: Clear Extremities: Absent: edema - Labs and Meds Comprehensive Metabolic Panel 11/10/17 Range/Units 04:41 Sodium 140 (137-145) mmol/L Potassium 4.2 (3.6-5.0) mmol/L Chloride 109.5 H (98-107) mmol/L Carbon Dioxide 17 L (22-30) mmol/L BUN 37 H (7-17) mg/dL Creatinine 3.5 H (0.7-1.2) mg/dL Glucose 91 (65-100) mg/dL Calcium 7.7 L (8.4-10.2) mg/dL
--- NOTE | 2017-11-10 13:14 | Progress Note ---
Assessment and Plan Assessment and plan: Patient is a 42-year-old woman history of IDDM, hypertension, coronary artery disease status post drug-eluting stent RCA whom I discharged in 2016 after non- STEMI, chronic kidney disease stage III, CVA, dyslipidemia and paroxysmal atrial fibrillation on Eliquis who presented with chest pains and found to have following: -Symptomatic Junctional bradycardia, s/p transvenous pacing, stable will transfer out of the ICU if ok with Cardiology and CCM -Chest pains, atypical -Hypotension s/p transvenous pacing via right IJ TLC: d/c TLC -P. Afib: continue Eliquis -Acute on CKD stage 3, vasomotor nephropathy, poa: Renal is following, repeat bmp -GB wall thickening: reviewed abd ultrasound, consult Gen. surgery for ?acute cholecysitis, empiric treat with iv abx, -Ischemic CM, echo showed EF of 35-40% with severe pul HTN and severe TR: Cardiology following -Hypotension, cardiogenic shock, poa: off levophed, BP stable -IDDM2: BG controlled -PAfib: rate controlled, Eliquis per Cardiology Disposition: d/c once cleared by Cardiology, removed left femoral TLC. d/w Dr. Carrington, get LFTs and he will see History Interval history: Patient was seen and examined. Follow-up on current diagnosis of chest pain. Overnight uneventful. Patient denies any chest pain, shortness breath, nausea/ vomiting or severe headaches. Imaging, nursing note, chart, labs and old chart reviewed. Discussed with patient. Patient examined in the ICU. Hospitalist Physical - Physical exam Narrative exam: GEN: WDWN, NAD, AWAKE, ALERT, ORIENTATED 3 HEENT: NCAT, EOMI, PERRL, OP Clear NECK: supple, no adenopathy, no thyromegaly, no JVD CVS/HEART: Irregular regular NORMAL S1S2, pulses present bilaterally CHEST/LUNGS: CTA B, Symmetrical chest expansion, good air entry bilaterally GI/Abdomen: soft, NTND, good bowel sounds, no guarding or rebound /Bladder: no suprapubic tenderness, no CVA or paraspinal tenderness EXT/Skin: no c/c/e, no obvious rash MSK: FROM x 4 Neuro: CN 2-12 grossly intact, no new focal deficits Psych: calm - Constitutional Vitals: Temp Pulse Resp BP Pulse Ox 97.8 F 66 16 146/81 97 11/10/17 09:08 11/10/17 09:08 11/10/17 09:08 11/10/17 09:08 11/10/17 09:08 General appearance: Present: no acute distress, well-nourished Results - Labs CBC & Chem 7: 11/07/17 06:05 11/10/17 04:41 Labs: Laboratory Last Values WBC 5.9 K/mm3 (4.5-11.0) 11/07/17 06:05 RBC 3.54 M/mm3 (3.65-5.03) L 11/07/17 06:05 Hgb 11.0 gm/dl (10.1-14.3) 11/07/17 06:05 Hct 33.4 % (30.3-42.9) D 11/07/17 06:05 MCV 94 fl (79-97) 11/07/17 06:05 MCH 31 pg (28-32) 11/07/17 06:05 MCHC 33 % (30-34) 11/07/17 06:05 RDW 14.2 % (13.2-15.2) 11/07/17 06:05 Plt Count 182 K/mm3 (140-440) 11/07/17 06:05 Lymph % (Auto) 34.9 % (13.4-35.0) 11/07/17 06:05 [place] % (Auto) 5.1 % (0.0-7.3) 11/07/17 06:05 Eos % (Auto) 2.8 % (0.0-4.3) 11/07/17 06:05 Baso % (Auto) 0.9 % (0.0-1.8) 11/07/17 06:05 Lymph # 2.1 K/mm3 (1.2-5.4) 11/07/17 06:05 [place] # 0.3 K/mm3 (0.0-0.8) 11/07/17 06:05 Eos # 0.2 K/mm3 (0.0-0.4) 11/07/17 06:05 Baso # 0.1 K/mm3 (0.0-0.1) 11/07/17 06:05 Seg Neutrophils % 56.3 % (40.0-70.0) 11/07/17 06:05 Seg Neutrophils # 3.3 K/mm3 (1.8-7.7) 11/07/17 06:05 PT 13.5 Sec. (12.2-14.9) 11/06/17 09:52 INR 0.98 (0.87-1.13) 11/06/17 09:52 APTT 30.6 Sec. (24.2-36.6) 11/06/17 09:52 Sodium 140 mmol/L (137-145) 11/10/17 04:41 Potassium 4.2 mmol/L (3.6-5.0) 11/10/17 04:41 Chloride 109.5 mmol/L (98-107) H 11/10/17 04:41 Carbon Dioxide 17 mmol/L (22-30) L 11/10/17 04:41 Anion Gap 18 mmol/L 11/10/17 04:41 BUN 37 mg/dL (7-17) H 11/10/17 04:41 Creatinine 3.5 mg/dL (0.7-1.2) H 11/10/17 04:41 Estimated GFR 14 ml/min 11/10/17 04:41 BUN/Creatinine Ratio 11 % 11/10/17 04:41 Glucose 91 mg/dL (65-100) 11/10/17 04:41 POC Glucose 89 (70-105) 11/10/17 06:14 Hemoglobin A1c 7.0 % (4-6) H 11/06/17 10:33 Calcium 7.7 mg/dL (8.4-10.2) L 11/10/17 04:41 Phosphorus 4.80 mg/dL (2.5-4.5) H 11/08/17 04:20 Magnesium 1.90 mg/dL (1.7-2.3) 11/08/17 04:20 Total Bilirubin 0.30 mg/dL (0.1-1.2) 11/07/17 06:05 Direct Bilirubin < 0.2 mg/dL (0-0.2) 11/06/17 09:52 Indirect Bilirubin 0.2 mg/dL 11/06/17 09:52 AST 7 units/L (5-40) 11/07/17 06:05 ALT 6 units/L (7-56) L 11/07/17 06:05 Alkaline Phosphatase 66 units/L (35-129) 11/07/17 06:05 Total Creatine Kinase 82 units/L (30-135) 11/08/17 07:41 CK-MB (CK-2) 3.3 ng/mL (0.0-4.0) 11/08/17 07:41 CK-MB (CK-2) Rel Index 4.0 (0-4) 11/08/17 07:41 Troponin T 0.015 ng/mL (0.00-0.029) 11/08/17 07:41 NT-Pro-B Natriuret Pep 69016 pg/mL (0-450) H 11/06/17 09:52 Total Protein 5.1 g/dL (6.3-8.2) L 11/07/17 06:05 Albumin 2.4 g/dL (3.9-5) L 11/07/17 06:05 Albumin/Globulin Ratio 0.9 % 11/07/17 06:05 Triglycerides 93 mg/dL (2-149) 11/06/17 09:52 Cholesterol 156 mg/dL (50-199) 11/06/17 09:52 LDL Cholesterol Direct 103 mg/dL (50-130) 11/06/17 09:52 HDL Cholesterol 48 mg/dL (40-59) 11/06/17 09:52 Cholesterol/HDL Ratio 3.25 % 11/06/17 09:52 Urine Color Yellow (Yellow) 11/07/17 Unknown Urine Turbidity Clear (Clear) 11/07/17 Unknown Urine pH 6.0 (5.0-7.0) 11/07/17 Unknown Ur Specific [place] 1.015 (1.003-1.030) 11/07/17 Unknown Urine Protein >500 mg/dL (Negative) 11/07/17 Unknown Urine Glucose (UA) 150 mg/dL (Negative) 11/07/17 Unknown Urine Ketones Neg mg/dL (Negative) 11/07/17 Unknown Urine Blood Neg (Negative) 11/07/17 Unknown Urine Nitrite Neg (Negative) 11/07/17 Unknown Urine Bilirubin Neg (Negative) 11/07/17 Unknown Urine Urobilinogen < 2.0 mg/dL (<2.0) 11/07/17 Unknown Ur Leukocyte Esterase Neg (Negative) 11/07/17 Unknown Urine WBC (Auto) 10.0 /HPF (0.0-6.0) H 11/07/17 Unknown Urine RBC (Auto) 2.0 /HPF (0.0-6.0) 11/07/17 Unknown Urine Mucus Few /HPF 11/07/17 Unknown Urine Creatinine 105.3 mg/dL (0.1-20.0) H 11/07/17 Unknown Urine Microalbumin 382.1 mg/dL (0.1-34.0) H 11/07/17 Unknown Microalb/Creat Ratio 3628.6 ug/mg 11/07/17 Unknown Urine Sodium 76 mmol/L 11/07/17 Unknown Urine Total Protein 250 mg/dL (5-11.8) H 11/07/17 13:08
[2017-11-10 14:47] LABS: Alanine Aminotransferase 18 units/L (7-56); Albumin 3.4 g/dL (3.9-5)
[2017-11-10 14:57] LABS: Bilirubin,Direct < 0.2 mg/dL (0-0.2)
--- NOTE | 2017-11-10 15:24 | Progress Note ---
Assessment and Plan - Patient Problems (1) Acute renal failure with tubular necrosis Current Visit: Yes Status: Acute Plan to address problem: Probably acute tubular necrosis secondary to hypotension. renal function improved marginally. cont supportive care. (2) Bradycardia Current Visit: Yes Status: Acute Plan to address problem: follow cardiology recommendations (3) Chronic renal insufficiency, stage III (moderate) Current Visit: Yes Status: Acute Plan to address problem: Probable diabetic nephropathy given history of retinopathy, urine MALB/Cr ratio 3628mg/g (4) Hypertensive chronic kidney disease with stage 1 through stage 4 chronic kidney disease, or unspecified chronic kidney disease Current Visit: Yes Status: Acute Plan to address problem: improved after adding hydralazine, will monitor BP and titrate up accordingly (5) Hypotension Current Visit: Yes Status: Acute Plan to address problem: BP now elevated (6) Insulin dependent diabetes mellitus Current Visit: Yes Status: Acute Plan to address problem: Blood sugar management by primary attending Subjective Date of service: 11/10/17 Principal diagnosis: Acute kidney injury Interval history: Pt awake, alert, in NAD Objective - Vital Signs Vital signs: Vital Signs - 12hr 11/10/17 11/10/17 11/10/17 04:52 06:07 08:08 Temperature 98.6 F 97.8 F Pulse Rate 61 60 64 Respiratory 18 16 Rate Blood Pressure 153/84 146/81 Blood Pressure 153/84 [Left] O2 Sat by Pulse 97 Oximetry 11/10/17 11/10/17 11/10/17 09:08 11:53 11:58 Temperature 97.8 F 97.8 F Pulse Rate 66 69 62 Respiratory 16 16 Rate Blood Pressure 146/112 Blood Pressure 146/81 [Left] O2 Sat by Pulse 97 99 97 Oximetry - General Appearance General appearance: well-developed, well-nourished, appears stated age EENT: ATNC, PERRL, mucous membranes moist Neck: no JVD Respiratory: Present: Decreased Breath Sounds Cardiology: regular, S1S2 Gastrointestinal: normoactive bowel sounds Integumentary: no rash, other (no edema ) Neurologic: no focal deficit, alert and oriented x3, strength 5/5, CN 3-12 intact Psychiatric: mood/affect appropriate, cooperative - Lab 11/07/17 06:05 11/10/17 04:41 Most recent lab results Calcium 7.7 mg/dL (8.4-10.2) L 11/10/17 04:41 Phosphorus 4.80 mg/dL (2.5-4.5) H 11/08/17 04:20 Magnesium 1.90 mg/dL (1.7-2.3) 11/08/17 04:20 Urine Creatinine 105.3 mg/dL (0.1-20.0) H 11/07/17 Unknown Urine Sodium 76 mmol/L 11/07/17 Unknown Urine Total Protein 250 mg/dL (5-11.8) H 11/07/17 13:08
--- NOTE | 2017-11-10 15:52 | Consultation ---
History of Present Illness Consult date: 11/10/17 Reason for consult: other (thickened gallbladder) Requesting physician: FABIOLA JEFFERSON Chief complaint: Chest pain - History of present illness History of present illness: 42-year-old female with multiple medical problems was recently admitted for chest pain. Workup revealed an incidental finding of gallbladder wall thickening. General surgery was consult it to further evaluate this. Patient denies any right upper quadrant pain. Patient denies any postprandial symptoms that could be suggestive of biliary colic. Patient denies ever having any issues in the right upper quadrant or hearing a diagnosis of cholecystitis. Patient is able to eat whatever she wants. 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 denies: smoking (quit smoking 5 years ago. she was smoking as much as 1 pack per day.), alcohol abuse, prescription drug abuse, IV drug use Family history: CAD (mother at age 50 of myocardial infarction. Father is 75 with glaucoma. Brother has heart disease) Medications and Allergies Allergies Allergy/AdvReac Type Severity Reaction Status Date / Time No Known Allergies Allergy Verified 10/10/13 01:16 Home Medications Medication Instructions Recorded Confirmed Last Taken Type Apixaban [Eliquis] 2.5 mg PO BID 60 Days tablet 07/22/16 11/06/17 11/05/17 Rx Insulin Glargine,Hum.rec.anlog 20 unit SQ QHS #30 07/22/16 11/06/17 11/05/17 Rx [Lantus Solostar] hydrALAZINE [Apresoline TAB] 15 mg PO Q8HR 09/16/16 11/06/17 11/05/17 History Aspirin EC [Aspirin Enteric Coated 81 mg PO QDAY tablet 10/12/16 11/06/1711/05 Rx TAB] Lispro Insulin [Humalog] 15 unit SQ BID 11/06/17 11/06/17 11/05/17 History Active Meds: Active Medications Apixaban (Eliquis) 2.5 mg PO Q12HR [facility]; Protocol Last Admin: 11/10/17 10:37 Dose: 2.5 mg Aspirin (Ecotrin) 325 mg PO QDAY ELISE Last Admin: 11/10/17 10:36 Dose: 325 mg Atorvastatin Calcium (Lipitor) 20 mg PO QHS [facility] Last Admin: 11/09/17 21:10 Dose: 20 mg Dextrose (D50w (25gm) Syringe) 50 ml IV PRN PRN PRN Reason: Hypoglycemia Last Admin: 11/09/17 07:27 Dose: 50 ml Hydralazine HCl (Apresoline) 25 mg PO Q8HR [facility] Last Admin: 11/10/17 06:07 Dose: 25 mg Piperacillin Sod/Tazobactam Sod (Zosyn/Ns 2.25 Gm/50ml) 2.25 gm in 50 mls @ 100 mls/hr IV Q8HR [facility]; Protocol Last Admin: 11/10/17 06:06 Dose: 100 mls/hr Insulin Human Lispro (Humalog) 0 unit SUB-Q ACHS [facility]; Protocol Last Admin: 11/10/17 08:23 Dose: Not Given Ondansetron HCl (Zofran) 4 mg IV Q6H PRN PRN Reason: Nausea And Vomiting Last Admin: 11/07/17 15:55 Dose: 4 mg Sodium Chloride (Sodium Chloride Flush Syringe 10 Ml) 10 ml IV PRN PRN PRN Reason: LINE FLUSH Last Admin: 11/09/17 21:01 Dose: 10 ml Review of Systems - Constitutional no fever, no chills - Cardiovascular chest pain (resolve now) - Respiratory no shortness of breath - Gastrointestinal no abdominal pain, no nausea, no vomiting, no loss of appetite, no indigestion, no belching, no dyspepsia/bloating - Muskuloskeletal other (no right flank or back pain) - Integumentary no rash, no jaundice (no history of this) Exam Vital Signs Temp Pulse Resp BP Pulse Ox 98.7 F 72 17 187/104 99 11/06/17 00:38 11/06/17 00:38 11/06/17 00:38 11/06/17 00:38 11/06/17 00:38 - General physical appearance Positive: well nourished, no distress, no pain - Eyes Positive: normal occular movement, other (anicteric) - Respiratory Positive: normal expansion, normal respiratory effort - Abdomen Abdomen: Present: soft, bowel sounds normal. Absent: tender, distended, rebound , guarding, rigid - Integumentary no rash - Neurologic Neurologic: alert and oriented to time, place and person, motor strength and sensation are grossly intact - Psychiatric Psychiatric: appropriate mood/affect, intact judgment & insight, memory intact, cooperative Results - Labs 11/07/17 06:05 11/10/17 04:41 Abnormal lab results 11/09/17 11/10/17 11/10/17 Range/Units 22:27 04:41 13:44 Chloride 109.5 H (98-107) mmol/L Carbon Dioxide 17 L (22-30) mmol/L BUN 37 H (7-17) mg/dL Creatinine 3.5 H (0.7-1.2) mg/dL POC Glucose 129 H (70-105) Calcium 7.7 L (8.4-10.2) mg/dL Albumin 3.4 L (3.9-5) g/dL Diabetes panel 11/10/17 11/10/17 Range/Units 04:41 13:44 Sodium 140 (137-145) mmol/L Potassium 4.2 (3.6-5.0) mmol/L Chloride 109.5 H (98-107) mmol/L Carbon Dioxide 17 L (22-30) mmol/L BUN 37 H (7-17) mg/dL Creatinine 3.5 H (0.7-1.2) mg/dL Glucose 91 (65-100) mg/dL Calcium 7.7 L (8.4-10.2) mg/dL AST 12 (5-40) units/L ALT 18 (7-56) units/L Alkaline Phosphatase 105 (35-129) units/L Total Protein 6.6 D (6.3-8.2) g/dL Albumin 3.4 L (3.9-5) g/dL Calcium panel 11/10/17 11/10/17 Range/Units 04:41 13:44 Calcium 7.7 L (8.4-10.2) mg/dL Albumin 3.4 L (3.9-5) g/dL Pituitary panel 11/10/17 Range/Units 04:41 Sodium 140 (137-145) mmol/L Potassium 4.2 (3.6-5.0) mmol/L Chloride 109.5 H (98-107) mmol/L Carbon Dioxide 17 L (22-30) mmol/L BUN 37 H (7-17) mg/dL Creatinine 3.5 H (0.7-1.2) mg/dL Glucose 91 (65-100) mg/dL Calcium 7.7 L (8.4-10.2) mg/dL Adrenal panel 11/10/17 11/10/17 Range/Units 04:41 13:44 Sodium 140 (137-145) mmol/L Potassium 4.2 (3.6-5.0) mmol/L Chloride 109.5 H (98-107) mmol/L Carbon Dioxide 17 L (22-30) mmol/L BUN 37 H (7-17) mg/dL Creatinine 3.5 H (0.7-1.2) mg/dL Glucose 91 (65-100) mg/dL Calcium 7.7 L (8.4-10.2) mg/dL Total Bilirubin 0.60 (0.1-1.2) mg/dL AST 12 (5-40) units/L ALT 18 (7-56) units/L Alkaline Phosphatase 105 (35-129) units/L Total Protein 6.6 D (6.3-8.2) g/dL Albumin 3.4 L (3.9-5) g/dL - Imaging CT scan - abdomen: report reviewed, image reviewed US - abdomen: report reviewed Assessment and Plan - Patient Problems (1) Gallbladder anomaly Current Visit: Yes Status: Acute Plan to address problem: Patient stable. Patient has no symptoms suggestive of gallbladder disease. I think the finding of gallbladder wall thickening is secondary to generalized edema that may be as a result of her heart failure. I have recommended to the primary team to check liver enzymes tomorrow. If they are normal or only slightly elevated, I would not pursue any further workup unless she becomes symptomatic. If they are markedly elevated, then we can consider performing a HIDA scan on Sunday. This has been explained to the patient and the primary team. Both are in agreement. I will follow up on the lab results tomorrow. Please call me if you have any questions or concerns. Time=45min
[2017-11-11] MEDS: ZOSYN/NS 2.25 GM/50ML 2.25 GM/50 ML BAG IV SCH (06:42)
[2017-11-11] MEDS: APRESOLINE PO SCH (06:43)
[2017-11-11] MEDS: HumaLOG SUB-Q SCH (08:44)
--- NOTE | 2017-11-11 09:01 | Event Note ---
Date: 11/11/17 LFTs are completely normal. No further work-up recommended unless clinical status changes. Pt probably has benign thickening of gallbladder wall. Please call if there are any questions. F/U prn.
[2017-11-11 09:50] VITALS: BP 145/73
[2017-11-11] MEDS: ELIQUIS PO SCH (09:58)
[2017-11-11] MEDS: ECOTRIN PO SCH (09:58)
--- NOTE | 2017-11-11 13:00 | Progress Note ---
Assessment and Plan Assessment and plan: Patient is a 42-year-old woman history of IDDM, hypertension, coronary artery disease status post drug-eluting stent RCA whom I discharged in 2016 after non- STEMI, chronic kidney disease stage III, CVA, dyslipidemia and paroxysmal atrial fibrillation on Eliquis who presented with chest pains and found to have following: -Symptomatic Junctional bradycardia, s/p transvenous pacing, transferred out of the ICU -Chest pains, atypical, most likely msk -P. Afib: continue Eliquis -Acute on CKD stage 3, ATN and vasomotor nephropathy, poa: Renal is following -GB wall thickening: reviewed abd ultrasound, consult Gen. surgery for no clinical acute cholecysitis, will stop iv abx, -Ischemic CM, echo showed EF of 35-40% with severe pul HTN and severe TR: Cardiology following -Hypotension, cardiogenic shock, poa: off levophed, BP stable -IDDM2: BG controlled -PAfib: rate controlled, Eliquis per Cardiology Disposition: d/c once cleared by Cardiology, removed left femoral TLC. d/w Dr. Carrington, get LFTs and he will see==>nothing to do 11/11/17: Heart rate is stable, will d/c once cleared by Cardiology. History Interval history: Patient was seen and examined. Follow-up on current diagnosis of chest pain. Overnight uneventful. Patient denies any chest pain, shortness breath, nausea/ vomiting or severe headaches. Imaging, nursing note, chart, labs and old chart reviewed. Discussed with patient. Patient examined in the ICU. Hospitalist Physical - Physical exam Narrative exam: GEN: WDWN, NAD, AWAKE, ALERT, ORIENTATED 3 HEENT: NCAT, EOMI, PERRL, OP Clear NECK: supple, no adenopathy, no thyromegaly, no JVD CVS/HEART: Irregular regular NORMAL S1S2, pulses present bilaterally CHEST/LUNGS: CTA B, Symmetrical chest expansion, good air entry bilaterally GI/Abdomen: soft, NTND, good bowel sounds, no guarding or rebound /Bladder: no suprapubic tenderness, no CVA or paraspinal tenderness EXT/Skin: no c/c/e, no obvious rash MSK: FROM x 4 Neuro: CN 2-12 grossly intact, no new focal deficits Psych: calm - Constitutional Vitals: Temp Pulse Resp BP Pulse Ox 97.2 F L 69 16 145/73 96 11/11/17 08:23 11/11/17 08:23 11/11/17 08:23 11/11/17 08:23 11/11/17 08:23 General appearance: Present: no acute distress, well-nourished Results - Labs CBC & Chem 7: 11/07/17 06:05 11/10/17 04:41 Labs: Laboratory Last Values WBC 5.9 K/mm3 (4.5-11.0) 11/07/17 06:05 RBC 3.54 M/mm3 (3.65-5.03) L 11/07/17 06:05 Hgb 11.0 gm/dl (10.1-14.3) 11/07/17 06:05 Hct 33.4 % (30.3-42.9) D 11/07/17 06:05 MCV 94 fl (79-97) 11/07/17 06:05 MCH 31 pg (28-32) 11/07/17 06:05 MCHC 33 % (30-34) 11/07/17 06:05 RDW 14.2 % (13.2-15.2) 11/07/17 06:05 Plt Count 182 K/mm3 (140-440) 11/07/17 06:05 Lymph % (Auto) 34.9 % (13.4-35.0) 11/07/17 06:05 Carter % (Auto) 5.1 % (0.0-7.3) 11/07/17 06:05 Eos % (Auto) 2.8 % (0.0-4.3) 11/07/17 06:05 Baso % (Auto) 0.9 % (0.0-1.8) 11/07/17 06:05 Lymph # 2.1 K/mm3 (1.2-5.4) 11/07/17 06:05 Carter # 0.3 K/mm3 (0.0-0.8) 11/07/17 06:05 Eos # 0.2 K/mm3 (0.0-0.4) 11/07/17 06:05 Baso # 0.1 K/mm3 (0.0-0.1) 11/07/17 06:05 Seg Neutrophils % 56.3 % (40.0-70.0) 11/07/17 06:05 Seg Neutrophils # 3.3 K/mm3 (1.8-7.7) 11/07/17 06:05 PT 13.5 Sec. (12.2-14.9) 11/06/17 09:52 INR 0.98 (0.87-1.13) 11/06/17 09:52 APTT 30.6 Sec. (24.2-36.6) 11/06/17 09:52 Sodium 140 mmol/L (137-145) 11/10/17 04:41 Potassium 4.2 mmol/L (3.6-5.0) 11/10/17 04:41 Chloride 109.5 mmol/L (98-107) H 11/10/17 04:41 Carbon Dioxide 17 mmol/L (22-30) L 11/10/17 04:41 Anion Gap 18 mmol/L 11/10/17 04:41 BUN 37 mg/dL (7-17) H 11/10/17 04:41 Creatinine 3.5 mg/dL (0.7-1.2) H 11/10/17 04:41 Estimated GFR 14 ml/min 11/10/17 04:41 BUN/Creatinine Ratio 11 % 11/10/17 04:41 Glucose 91 mg/dL (65-100) 11/10/17 04:41 POC Glucose 151 (70-105) H 11/11/17 12:36 Hemoglobin A1c 7.0 % (4-6) H 11/06/17 10:33 Calcium 7.7 mg/dL (8.4-10.2) L 11/10/17 04:41 Phosphorus 4.80 mg/dL (2.5-4.5) H 11/08/17 04:20 Magnesium 1.90 mg/dL (1.7-2.3) 11/08/17 04:20 Total Bilirubin 0.60 mg/dL (0.1-1.2) 11/10/17 13:44 Direct Bilirubin < 0.2 mg/dL (0-0.2) 11/10/17 13:44 Indirect Bilirubin 0.4 mg/dL 11/10/17 13:44 AST 12 units/L (5-40) 11/10/17 13:44 ALT 18 units/L (7-56) 11/10/17 13:44 Alkaline Phosphatase 105 units/L (35-129) 11/10/17 13:44 Total Creatine Kinase 82 units/L (30-135) 11/08/17 07:41 CK-MB (CK-2) 3.3 ng/mL (0.0-4.0) 11/08/17 07:41 CK-MB (CK-2) Rel Index 4.0 (0-4) 11/08/17 07:41 Troponin T 0.015 ng/mL (0.00-0.029) 11/08/17 07:41 NT-Pro-B Natriuret Pep 85909 pg/mL (0-450) H 11/06/17 09:52 Total Protein 6.6 g/dL (6.3-8.2) D 11/10/17 13:44 Albumin 3.4 g/dL (3.9-5) L 11/10/17 13:44 Albumin/Globulin Ratio 1.1 % 11/10/17 13:44 Triglycerides 93 mg/dL (2-149) 11/06/17 09:52 Cholesterol 156 mg/dL (50-199) 11/06/17 09:52 LDL Cholesterol Direct 103 mg/dL (50-130) 11/06/17 09:52 HDL Cholesterol 48 mg/dL (40-59) 11/06/17 09:52 Cholesterol/HDL Ratio 3.25 % 11/06/17 09:52 Urine Color Yellow (Yellow) 11/07/17 Unknown Urine Turbidity Clear (Clear) 11/07/17 Unknown Urine pH 6.0 (5.0-7.0) 11/07/17 Unknown Ur Specific [place] 1.015 (1.003-1.030) 11/07/17 Unknown Urine Protein >500 mg/dL (Negative) 11/07/17 Unknown Urine Glucose (UA) 150 mg/dL (Negative) 11/07/17 Unknown Urine Ketones Neg mg/dL (Negative) 11/07/17 Unknown Urine Blood Neg (Negative) 11/07/17 Unknown Urine Nitrite Neg (Negative) 11/07/17 Unknown Urine Bilirubin Neg (Negative) 11/07/17 Unknown Urine Urobilinogen < 2.0 mg/dL (<2.0) 11/07/17 Unknown Ur Leukocyte Esterase Neg (Negative) 11/07/17 Unknown Urine WBC (Auto) 10.0 /HPF (0.0-6.0) H 11/07/17 Unknown Urine RBC (Auto) 2.0 /HPF (0.0-6.0) 11/07/17 Unknown Urine Mucus Few /HPF 11/07/17 Unknown Urine Creatinine 105.3 mg/dL (0.1-20.0) H 11/07/17 Unknown Urine Microalbumin 382.1 mg/dL (0.1-34.0) H 11/07/17 Unknown Microalb/Creat Ratio 3628.6 ug/mg 11/07/17 Unknown Urine Sodium 76 mmol/L 11/07/17 Unknown Urine Total Protein 250 mg/dL (5-11.8) H 11/07/17 13:08
--- NOTE | 2017-11-11 13:05 | Discharge Summary ---
Providers - Providers Date of Admission: 11/06/17 08:19 Date of discharge: 11/11/17 Attending physician: FABIOLA JEFFERSON 11/06/17 Consult to Cardiac Rehabilitation [CONS] Routine Reason For Exam: Phase I 11/06/17 10:16 Consult to Cardiology [CONS] Routine Consulting Provider: KITTY COHEN Reason For Exam: CHF, chest pain 11/06/17 22:10 Consult to Physician [CONS] Routine Comment: Consulting Provider: ERICKA LOZANO Physician Instructions: Reason For Exam: acute on chronic reanl failure 11/09/17 18:20 Consult to Physician [CONS] Routine Comment: Consulting Provider: SHANTEL DICKEY Physician Instructions: Reason For Exam: Evaluate for acute cholecystitis Primary care physician: WAQAS BARTH Hospitalization Condition: Stable Hospital course: Patient is a 42-year-old woman history of IDDM, hypertension, coronary artery disease status post drug-eluting stent RCA whom I discharged in 2016 after non- STEMI, chronic kidney disease stage III, CVA, dyslipidemia and paroxysmal atrial fibrillation on Eliquis who presented with chest pains and found to have following: -Symptomatic Junctional bradycardia, s/p transvenous pacing, transferred out of the ICU -Chest pains, atypical, most likely msk -P. Afib: continue Eliquis -Acute on CKD stage 3, ATN and vasomotor nephropathy, poa: Renal is following -GB wall thickening: reviewed abd ultrasound, consult Gen. surgery for no clinical acute cholecysitis, will stop iv abx, -Ischemic CM, echo showed EF of 35-40% with severe pul HTN and severe TR: Cardiology following -Hypotension, cardiogenic shock, poa: off levophed, BP stable -IDDM2: BG controlled -PAfib: rate controlled, Eliquis per Cardiology Disposition: d/c once cleared by Cardiology, removed left femoral TLC. d/w Dr. Carrington, get LFTs and he will see==>nothing to do 11/11/17: Heart rate is stable, will d/c once cleared by Cardiology. Disposition: TO HOME OR SELFCARE Time spent for discharge: 36 min Core Measure Documentation - Palliative Care Palliative Care/ Comfort Measures: Not Applicable - Core Measures Any of the following diagnoses?: none - VTE Discharge Requirements Deep Vein Thrombosis/Pulmonary Embolism Present on Admission: No Has pt received <5 days of overlap therapy or INR<2.0: No Anticoagulant overlap therapy prescribed at discharge: No Contraindication No Overlap Therapy order at DC: Not Indicated Exam - Physical Exam Narrative exam: GEN: WDWN, NAD, AWAKE, ALERT, ORIENTATED 3 HEENT: NCAT, EOMI, PERRL, OP Clear NECK: supple, no adenopathy, no thyromegaly, no JVD CVS/HEART: Irregular regular NORMAL S1S2, pulses present bilaterally CHEST/LUNGS: CTA B, Symmetrical chest expansion, good air entry bilaterally GI/Abdomen: soft, NTND, good bowel sounds, no guarding or rebound /Bladder: no suprapubic tenderness, no CVA or paraspinal tenderness EXT/Skin: no c/c/e, no obvious rash MSK: FROM x 4 Neuro: CN 2-12 grossly intact, no new focal deficits Psych: calm - Constitutional Vitals: Temp Pulse Resp BP Pulse Ox 97.2 F L 69 16 145/73 96 11/11/17 08:23 11/11/17 08:23 11/11/17 08:23 11/11/17 08:23 11/11/17 08:23 Plan Activity: other (no strenous activities until cleared by Cardiology) Diet: low salt, diabetic Special Instructions: record blood sugar diary (three times a day with meals) Follow up with: WAQAS BARTH MD [Primary Care Provider] - 3-5 Days KITTY COHEN MD [Staff Physician] - 7 Days ERICKA LOZANO MD [Staff Physician] - 7 Days Prescriptions: AtorvaSTATin [Lipitor] 20 mg PO QHS #30 tablet Apixaban [Eliquis] 2.5 mg PO BID 60 Days tablet Aspirin EC [Aspirin Enteric Coated TAB] 81 mg PO QDAY #30 tablet hydrALAZINE [Apresoline TAB] 25 mg PO TID #90 tablet
--- NOTE | 2017-11-11 13:32 | Progress Note ---
Assessment and Plan - Patient Problems (1) Bradycardia Current Visit: Yes Status: Acute Plan to address problem: Bradycardia has resolved, cardiovascular status is stable, continue supportive management and medical therapy. Subjective Date of service: 11/11/17 Principal diagnosis: Acute kidney injury Interval history: Patient looks and feels better, no chest pain, no shortness of breath and no further bradycardia. Objective Vital Signs Temp Pulse Pulse Resp Resp BP Pulse Ox 11/11/17 08:23 97.2 F L 69 16 145/73 96 11/11/17 06:43 65 134/76 11/11/17 05:30 98.6 F 65 20 134/76 97 11/10/17 23:40 98.2 F 66 20 128/73 96 11/10/17 23:01 18 11/10/17 23:00 73 158/81 11/10/17 22:00 70 18 11/10/17 20:33 98.3 F 73 18 158/81 97 11/10/17 19:28 72 11/10/17 16:17 68 174/96 98 - Physical Examination General: Appears Well, No Apparent Distress HEENT: Positive: PERRL Neck: Positive: neck supple, Other (right IJ TVP) Cardiac: Positive: Reg Rate and Rhythm Lungs: Positive: clear to auscultation Neuro: Positive: Grossly Intact Abdomen: Positive: Soft Skin: Positive: Clear Extremities: Absent: edema - Labs and Meds Cardiac Enzymes 11/10/17 Range/Units 13:44 AST 12 (5-40) units/L Comprehensive Metabolic Panel 11/10/17 Range/Units 13:44 Direct Bilirubin < 0.2 (0-0.2) mg/dL Indirect Bilirubin 0.4 mg/dL AST 12 (5-40) units/L ALT 18 (7-56) units/L Alkaline Phosphatase 105 (35-129) units/L Total Protein 6.6 D (6.3-8.2) g/dL Albumin 3.4 L (3.9-5) g/dL
--- NOTE | 2017-11-11 13:54 | Progress Note ---
Assessment and Plan - Patient Problems (1) Acute renal failure with tubular necrosis Current Visit: Yes Status: Acute Plan to address problem: Probably acute tubular necrosis secondary to hypotension. renal function improved marginally. cont supportive care. monitor lytes/renal function. no acute indication for renal replacement therapy, pt is otherwise stable for discharge with outpatient CKD f/u (2) Bradycardia Current Visit: Yes Status: Acute Plan to address problem: follow cardiology recommendations (3) Chronic renal insufficiency, stage III (moderate) Current Visit: Yes Status: Acute Plan to address problem: Probable diabetic nephropathy given history of retinopathy, urine MALB/Cr ratio 3628mg/g (4) Hypertensive chronic kidney disease with stage 1 through stage 4 chronic kidney disease, or unspecified chronic kidney disease Current Visit: Yes Status: Acute Plan to address problem: improved after adding hydralazine, will monitor BP and titrate up accordingly (5) Hypotension Current Visit: Yes Status: Acute Plan to address problem: BP now elevated (6) Insulin dependent diabetes mellitus Current Visit: Yes Status: Acute Plan to address problem: Blood sugar management by primary attending Subjective Date of service: 11/11/17 Principal diagnosis: Acute kidney injury Interval history: Pt awake, alert, in NAD Objective - Vital Signs Vital signs: Vital Signs - 12hr 11/11/17 11/11/17 11/11/17 05:30 06:43 08:23 Temperature 98.6 F 97.2 F L Pulse Rate 65 65 69 Respiratory 20 16 Rate Blood Pressure 134/76 134/76 145/73 O2 Sat by Pulse 97 96 Oximetry - General Appearance General appearance: well-developed, well-nourished, appears stated age EENT: ATNC, PERRL, mucous membranes moist Neck: no JVD Respiratory: Present: Clear to Ascultation Cardiology: regular, S1S2 Gastrointestinal: normoactive bowel sounds Integumentary: no rash, other (no edema ) Neurologic: no focal deficit, alert and oriented x3, strength 5/5, CN 3-12 intact Psychiatric: mood/affect appropriate, cooperative - Lab 11/07/17 06:05 11/10/17 04:41 Most recent lab results Calcium 7.7 mg/dL (8.4-10.2) L 11/10/17 04:41 Phosphorus 4.80 mg/dL (2.5-4.5) H 11/08/17 04:20 Magnesium 1.90 mg/dL (1.7-2.3) 11/08/17 04:20 Urine Creatinine 105.3 mg/dL (0.1-20.0) H 11/07/17 Unknown Urine Sodium 76 mmol/L 11/07/17 Unknown Urine Total Protein 250 mg/dL (5-11.8) H 11/07/17 13:08
== END 2017-11-11 15:27 | disposition home or self-care (01) | DRG 682 ==
LOC: ED 23:59 → 4A 11-06 08:19 → CC1 11-07 14:19 → 4A 11-09 15:55
PROVIDERS: ADMIT Internal Medicine; ATTEND Internal Medicine
PROC: 5A1223Z Performance of Cardiac Pacing, Continuous (ICD-10-PCS; principal; 2017-11-07)
PROC: 06HY33Z Insertion of Infusion Device into Lower Vein, Percutaneous Approach (ICD-10-PCS; 2017-11-07)
PROC: B54CZZA Ultrasonography of Left Lower Extremity Veins, Guidance (ICD-10-PCS; 2017-11-07)
DX: N17.0 Acute kidney failure with tubular necrosis (principal); R57.0 Cardiogenic shock; R00.1 Bradycardia, unspecified; I95.9 Hypotension, unspecified; I25.10 Atherosclerotic heart disease of native coronary artery without angina pectoris; N18.3 Chronic kidney disease, stage 3 (moderate); E11.22 Type 2 diabetes mellitus with diabetic chronic kidney disease; I48.0 Paroxysmal atrial fibrillation; R07.89 Other chest pain; I25.5 Ischemic cardiomyopathy; I27.20 Pulmonary hypertension, unspecified; I50.9 Heart failure, unspecified; E78.1 Pure hyperglyceridemia; I13.0 Hypertensive heart and chronic kidney disease with heart failure and stage 1 through stage 4 chronic kidney disease, or unspecified chronic kidney disease; J44.9 Chronic obstructive pulmonary disease, unspecified; Z79.82 Long term (current) use of aspirin; Z79.4 Long term (current) use of insulin; Z95.5 Presence of coronary angioplasty implant and graft; I25.2 Old myocardial infarction; Z86.73 Personal history of transient ischemic attack (TIA), and cerebral infarction without residual deficits; Z79.899 Other long term (current) drug therapy; Q44.1 Other congenital malformations of gallbladder
CPT/HCPCS: 33210; 36415; 71045; 71046; 74176; 76700; 76770; 80048; 80053; 80061; 80074; 81001; 82043; 82550; 82553; 82570; 82962; 83036; 83735; 83880; 84100; 84156; 84300; 84484; 85025; 85610; 85730; 93005; 93010; 93306; A9270-GY; C1894; J0360; J0461; J1610; J1644; J1815; J1940; J2405; J2543; J7030; J7040

== ENCOUNTER 2018-01-27 13:34 | Emergency (ER) | payer MEDICAID ==
[2018-01-27] MEDS ORDERED: KEPPRA 1,000 MG/NS 0.75% 100ML 1,000 MG/100 ML BAG IV ONE ×2 (13:45→13:50)
--- NOTE | 2018-01-27 13:56 | Emergency Department Report ---
HPI - General Chief Complaint: Seizure Time Seen by Provider: 01/27/18 13:42 - HPI HPI: Room 7 The patient is a 42-year-old female presenting with a chief complaint of seizure. EMS the patient was at home when she had a witnessed generalized tonic -clonic seizure lasting 3-5 minutes. The patient is amnestic to the event. The patient states she had her first seizure of life approximately one month ago while in the hospital. The patient states she was never started on any medication. When asked how she is feeling currently the patient replies she feels okay. Patient denies any form of pain Location: Central nervous system Duration: 3-5 minutes Quality: Generalized tonic-clonic seizure Severity: Unknown Modifying factors: [see above] Context: [see above] Mode of transportation: [not driving] ED Past Medical Hx - Past Medical History Previous Medical History?: Yes Hx Hypertension: Yes Hx Congestive Heart Failure: Yes Hx Diabetes: Yes (dx in 1999) Hx Seizures: Yes Hx COPD: Yes Additional medical history: Pulmonary hypertension and dilated right atrium or neck. Left ventricular function within normal limits.Patient says she is on stage 4 of renal failure.But not on dialysis. - Surgical History Past Surgical History?: Yes Hx Coronary Stent: Yes Additional Surgical History: Bilateral cataracts and laser surgery for diabetic retinopathy with residual decreased vision in the left eye even prior to today. - Family History Family history: no significant - Social History Smoking Status: Current Some Day Smoker Substance Use Type: None (denies illicit drug use) - Medications Home Medications: Home Medications Medication Instructions Recorded Confirmed Last Taken Type Insulin Glargine,Hum.rec.anlog 20 unit SQ QHS #30 07/22/16 11/06/17 11/05/17 Rx [Lantus Solostar] Lispro Insulin [Humalog] 15 unit SQ BID 11/06/17 11/06/17 11/05/17 History Apixaban [Eliquis] 2.5 mg PO BID 60 Days tablet 11/11/17 Unknown Rx Aspirin EC [Aspirin Enteric Coated 81 mg PO QDAY #30 tablet 11/11/17 Unknown Rx TAB] AtorvaSTATin [Lipitor] 20 mg PO QHS #30 tablet 11/11/17 Unknown Rx hydrALAZINE [Apresoline TAB] 25 mg PO TID #90 tablet 11/11/17 Unknown Rx levETIRAcetam [Keppra TAB] 500 mg PO BID #90 tablet 01/27/18 Unknown Rx ED Review of Systems ROS: Stated complaint: SEIZURE Other details as noted in HPI Constitutional: no symptoms reported Eyes: denies: eye pain ENT: denies: throat pain Cardiovascular: denies: chest pain Gastrointestinal: denies: abdominal pain Genitourinary: denies: dysuria Musculoskeletal: denies: back pain Neurological: denies: headache Physical Exam - Physical Exam Physical Exam: GENERAL: The patient is well-developed well-nourished female lying on stretcher not appearing to be in acute distress. [] HEENT: Normocephalic. Atraumatic. Extraocular motions are intact. Patient has moist mucous membranes. NECK: Supple. No meningitic signs are noted. Trachea midline CHEST/LUNGS: Clear to auscultation. There is no respiratory distress noted. HEART/CARDIOVASCULAR: Regular. There is no tachycardia. There is a 4/6 systolic murmur. ABDOMEN: Abdomen is soft, nontender. Patient has normal bowel sounds. There is no abdominal distention. SKIN: There is no rash. There is no edema. There is no diaphoresis. NEURO: The patient is awake, alert, and oriented. The patient is cooperative. The patient has no focal neurologic deficits. The patient has normal speech. Cranial nerves II through XII grossly intact, no drift MUSCULOSKELETAL: There is no evidence of acute injury. ED Medical Decision Making - Lab Data Result diagrams: 01/27/18 13:48 01/27/18 13:48 Laboratory Tests 01/27/18 01/27/18 01/27/18 13:48 13:48 13:48 WBC 7.9 RBC 4.18 Hgb 13.1 Hct 40.3 MCV 96 MCH 31 MCHC 33 RDW 14.8 Plt Count 215 PT INR APTT Sodium 135 L Potassium 4.3 Chloride 100.1 Carbon Dioxide 15 L Anion Gap 24 BUN 24 H Creatinine 3.2 H Estimated GFR 16 BUN/Creatinine Ratio 8 Glucose 171 H Calcium 8.3 L Magnesium HCG, Qual Negative 01/27/18 01/27/18 13:54 13:54 WBC RBC Hgb Hct MCV MCH MCHC RDW Plt Count PT 13.6 INR 0.99 APTT 29.2 Sodium Potassium Chloride Carbon Dioxide Anion Gap BUN Creatinine Estimated GFR BUN/Creatinine Ratio Glucose Calcium Magnesium 1.90 HCG, Qual - Radiology Data Radiology results: report reviewed (CT head), image reviewed (CT head) [facility] [address] [id number] Cat Scan Report Signed Patient: ZEKE MARTINEZ MR#: [id number] : 1975 Acct:[id number] Age/Sex: 42 / F ADM Date: 01/27/18 Loc: ED Attending Dr: Ordering Physician: ADRIAN POLK MD Date of Service: 01/27/18 Procedure(s): CT head/brain wo con Accession Number(s): [id number] cc: ADRIAN POLK MD FINAL REPORT PROCEDURE: CT HEAD/BRAIN WO CON TECHNIQUE: Computerized tomography of the head was performed without contrast material. HISTORY: seizure COMPARISON: MRI 10/09/2016 FINDINGS: There is encephalomalacia in the medial right occipital lobe, compatible with remote infarct. There is a remote appearing focal lacunar infarct in the right basal ganglia. There is no CT evidence of intracranial hemorrhage, mass, hydrocephalus, or acute territorial infarction. The intracranial arteries are symmetric in density. Calvarium is intact. Visualized paranasal sinuses and mastoids are aerated. IMPRESSION: Encephalomalacia in the medial right occipital lobe. No CT evidence of acute intracranial abnormality Transcribed By: [facility] Dictated By: TREVOR RAMIREZ M.D. Electronically Authenticated By: TREVOR RAMIREZ M.D. Signed Date/Time: 01/27/181437 DD/ 37 TD/TT: 01/27/181437 - Differential Diagnosis seizure, epilepsy, ICH, electrolyte imbalance Critical care attestation.: If time is entered above; I have spent that time in minutes in the direct care of this critically ill patient, excluding procedure time. ED Disposition Clinical Impression: Seizure, Renal insufficiency Disposition: - TO HOME OR SELFCARE Is pt being admited?: No Does the pt Need Aspirin: No Condition: Stable Instructions: Recurrent Seizures Adult (ED) Additional Instructions: You should not drive, operate heavy machinery or be around large bodies of water unattended until you are cleared by a neurologist. Return to the emergency department immediately should you develop worsening symptoms, fever, inability to tolerate food or liquid or any other concerns. Prescriptions: levETIRAcetam [Keppra TAB] 500 mg PO BID #90 tablet Referrals: PRIMARY CARE, [Primary Care Provider] - 3-5 Days REBEKA SNEED MD [Staff Physician] - [facility] (Dr. Sneed is a neurologist. Please follow-up with him for further evaluation) Time of Disposition: 15:08
[2018-01-27 14:01] VITALS: BP 158/91
[2018-01-27 14:09] LABS: Hematocrit 40.3 % (30.3-42.9); Hemoglobin 13.1 gm/dl (10.1-14.3); Mean Corpuscular HGB Conc 33 % (30-34); Mean Corpuscular Hemoglobin 31 pg (28-32); Mean Corpuscular Volume 96 fl (79-97); Platelet Count 215 K/mm3 (140-440); Red Blood Count 4.18 M/mm3 (3.65-5.03); Red Cell Distribution Width 14.8 % (13.2-15.2)
[2018-01-27 14:15] LABS: Calcium 8.3 mg/dL (8.4-10.2)
[2018-01-27] MEDS ORDERED: HumuLIN R IV ONE (14:19)
[2018-01-27 14:23] LABS: INR 0.99 (0.87-1.13); Partial Thromboplastin Time 29.2 Sec. (24.2-36.6)
--- NOTE | 2018-01-27 14:43 | Cat Scan Report ---
FINAL REPORT PROCEDURE: CT HEAD/BRAIN WO CON TECHNIQUE: Computerized tomography of the head was performed without contrast material. HISTORY: seizure COMPARISON: MRI 10/09/2016 FINDINGS: There is encephalomalacia in the medial right occipital lobe, compatible with remote infarct. There is a remote appearing focal lacunar infarct in the right basal ganglia. There is no CT evidence of intracranial hemorrhage, mass, hydrocephalus, or acute territorial infarction. The intracranial arteries are symmetric in density. Calvarium is intact. Visualized paranasal sinuses and mastoids are aerated. IMPRESSION: Encephalomalacia in the medial right occipital lobe. No CT evidence of acute intracranial abnormality
== END 2018-01-27 16:00 | disposition home or self-care (01) ==
LOC: ED 13:34
DX: R56.9 Unspecified convulsions (principal); N28.9 Disorder of kidney and ureter, unspecified; J44.9 Chronic obstructive pulmonary disease, unspecified; I27.20 Pulmonary hypertension, unspecified; I13.0 Hypertensive heart and chronic kidney disease with heart failure and stage 1 through stage 4 chronic kidney disease, or unspecified chronic kidney disease; E11.22 Type 2 diabetes mellitus with diabetic chronic kidney disease; N18.4 Chronic kidney disease, stage 4 (severe); F17.200 Nicotine dependence, unspecified, uncomplicated; Z98.61 Coronary angioplasty status; Z79.4 Long term (current) use of insulin; Z98.890 Other specified postprocedural states
CPT/HCPCS: 36415; 70450; 80048; 83735; 84703; 85027; 85610; 85730; 96365; 99285; J1953

== ENCOUNTER 2018-04-16 19:15 | Emergency (ER) | payer MEDICAID ==
[2018-04-17 00:12] LABS: Basophils # (Auto) 0.1 K/mm3 (0.0-0.1); Basophils % (Auto) 0.7 % (0.0-1.8); Eosinophils % (Auto) 0.1 % (0.0-4.3); Hematocrit 40.9 % (30.3-42.9); Hemoglobin 13.9 gm/dl (10.1-14.3); Lymphocytes # (Auto) 0.8 K/mm3 (1.2-5.4); Lymphocytes % (Auto) 8.5 % (13.4-35.0); Mean Corpuscular HGB Conc 34 % (30-34); Mean Corpuscular Hemoglobin 32 pg (28-32); Mean Corpuscular Volume 95 fl (79-97); Monocytes # (Auto) 0.2 K/mm3 (0.0-0.8); Monocytes % (Auto) 2.4 % (0.0-7.3); Platelet Count 165 K/mm3 (140-440); Red Blood Count 4.29 M/mm3 (3.65-5.03); Red Cell Distribution Width 15.9 % (13.2-15.2)
[2018-04-17 00:51] LABS: Calcium 8.5 mg/dL (8.4-10.2)
--- NOTE | 2018-04-17 06:15 | Emergency Department Report ---
ED General Adult HPI - General Chief complaint: Seizure Stated complaint: GENERAL ILLNESS Time Seen by Provider: 04/17/18 06:12 Source: patient Mode of arrival: Ambulatory Limitations: No Limitations - History of Present Illness Initial comments: 42-year-old female who appears to be an unreliable historian. She states she's never had a CT of the head in the past. She states that she's been diagnosed with seizure for about 4 months. She states she is taking Dilantin. She states she has never taken anything else for seizures. Her record indicates Breath. It also indicates that she had a CT of her head on 02/13 which showed encephalomalacia but no acute process. She states she is taking Eliquis for "a stroke". She does have a prior history of A. fib and NSTEMI. The patient denies headache. He states she had a single seizure. She denies injury. Per the patient's prior records, nephrology consult indicates: Assessment and Plan - Patient Problems (1) Acute renal failure with tubular necrosis Current Visit: Yes Status: Acute Plan to address problem: Probably acute tubular necrosis secondary to hypotension. renal function improved marginally. cont supportive care. monitor lytes/renal function. no acute indication for renal replacement therapy, pt is otherwise stable for discharge with outpatient CKD f/u (2) Bradycardia Current Visit: Yes Status: Acute Plan to address problem: follow cardiology recommendations (3) Chronic renal insufficiency, stage III (moderate) Current Visit: Yes Status: Acute Plan to address problem: Probable diabetic nephropathy given history of retinopathy, urine MALB/Cr ratio 3628mg/g (4) Hypertensive chronic kidney disease with stage 1 through stage 4 chronic kidney disease, or unspecified chronic kidney disease Current Visit: Yes Status: Acute Plan to address problem: improved after adding hydralazine, will monitor BP and titrate up accordingly (5) Hypotension Current Visit: Yes Status: Acute Plan to address problem: BP now elevated (6) Insulin dependent diabetes mellitus Current Visit: Yes Status: Acute Plan to address problem: Blood sugar management by primary attending -: Sudden Worsens with: none Associated Symptoms: denies other symptoms - Related Data Home Medications Medication Instructions Recorded Confirmed Last Taken Lispro Insulin [Humalog] 15 unit SQ BID 11/06/17 11/06/17 11/05/17 Previous Rx's Medication Instructions Recorded Last Taken Type Insulin Glargine,Hum.rec.anlog 20 unit SQ QHS #30 07/22/16 11/05/17 Rx [Lantus Solostar] Apixaban [Eliquis] 2.5 mg PO BID 60 Days tablet 11/11/17 Unknown Rx Aspirin EC [Aspirin Enteric Coated 81 mg PO QDAY #30 tablet 11/11/17 Unknown Rx TAB] AtorvaSTATin [Lipitor] 20 mg PO QHS #30 tablet 11/11/17 Unknown Rx hydrALAZINE [Apresoline TAB] 25 mg PO TID #90 tablet 11/11/17 Unknown Rx levETIRAcetam [Keppra TAB] 500 mg PO BID #90 tablet 01/27/18 Unknown Rx levETIRAcetam [Keppra TAB] 750 mg PO BID #60 tablet 04/17/18 Unknown Rx Allergies Allergy/AdvReac Type Severity Reaction Status Date / Time No Known Allergies Allergy Verified 10/10/13 01:16 ED Review of Systems ROS: Stated complaint: GENERAL ILLNESS Other details as noted in HPI Constitutional: denies: chills, fever Eyes: denies: eye pain, eye discharge, vision change ENT: denies: ear pain, throat pain Respiratory: denies: cough, shortness of breath, wheezing Cardiovascular: denies: chest pain, palpitations Endocrine: no symptoms reported Gastrointestinal: denies: abdominal pain, nausea, diarrhea Genitourinary: denies: urgency, dysuria, discharge Musculoskeletal: denies: back pain, joint swelling, arthralgia Skin: denies: rash, lesions Neurological: as per HPI. denies: headache, weakness, paresthesias Psychiatric: denies: anxiety, depression Hematological/Lymphatic: denies: easy bleeding, easy bruising ED Past Medical Hx - Past Medical History Previous Medical History?: Yes Hx Hypertension: Yes Hx Congestive Heart Failure: Yes Hx Diabetes: Yes (dx in 1999) Hx Deep Vein Thrombosis: No Hx Seizures: Yes Hx Asthma: No Hx COPD: Yes Hx HIV: No Additional medical history: Pulmonary hypertension and dilated right atrium or neck. Left ventricular function within normal limits.Patient says she is on stage 4 of renal failure.But not on dialysis. - Surgical History Past Surgical History?: Yes Hx Coronary Stent: Yes Additional Surgical History: Bilateral cataracts and laser surgery for diabetic retinopathy with residual decreased vision in the left eye even prior to today. - Social History Smoking Status: Never Smoker Substance Use Type: None - Medications Home Medications: Home Medications Medication Instructions Recorded Confirmed Last Taken Type Insulin Glargine,Hum.rec.anlog 20 unit SQ QHS #30 07/22/16 11/06/17 11/05/17 Rx [Lantus Solostar] Lispro Insulin [Humalog] 15 unit SQ BID 11/06/17 11/06/17 11/05/17 History Apixaban [Eliquis] 2.5 mg PO BID 60 Days tablet 11/11/17 Unknown Rx Aspirin EC [Aspirin Enteric Coated 81 mg PO QDAY #30 tablet 11/11/17 Unknown Rx TAB] AtorvaSTATin [Lipitor] 20 mg PO QHS #30 tablet 11/11/17 Unknown Rx hydrALAZINE [Apresoline TAB] 25 mg PO TID #90 tablet 11/11/17 Unknown Rx levETIRAcetam [Keppra TAB] 500 mg PO BID #90 tablet 01/27/18 Unknown Rx levETIRAcetam [Keppra TAB] 750 mg PO BID #60 tablet 04/17/18 Unknown Rx ED Physical Exam - General Limitations: Other (a bit lethargic) General appearance: alert, in no apparent distress, lethargic - Head Head exam: Present: atraumatic, normocephalic - Eye Eye exam: Present: normal appearance, PERRL, EOMI. Absent: scleral icterus - ENT ENT exam: Present: mucous membranes moist - Neck Neck exam: Present: normal inspection. Absent: tenderness, meningismus - Respiratory Respiratory exam: Present: normal lung sounds bilaterally. Absent: respiratory distress - Cardiovascular Cardiovascular Exam: Present: regular rate, normal rhythm. Absent: systolic murmur, diastolic murmur, rubs, gallop - GI/Abdominal GI/Abdominal exam: Present: soft, normal bowel sounds. Absent: distended, tenderness, guarding, rebound, rigid - Extremities Exam Extremities exam: Present: normal inspection - Back Exam Back exam: Present: normal inspection - Neurological Exam Neurological exam: Present: alert, oriented X3, CN II-XII intact, other ( cerebellar testing was normal). Absent: motor sensory deficit - Psychiatric Psychiatric exam: Present: normal mood, flat affect - Skin Skin exam: Present: warm, dry, intact, normal color. Absent: rash ED Course Vital Signs 04/16/18 04/17/1818 23:24 05:29 05:30 Temperature 98 F Pulse Rate 72 68 Respiratory 18 16 Rate Blood Pressure 169/119 162/95 Blood Pressure 162/95 [Left] O2 Sat by Pulse 96 Oximetry 04/17/18 04/17/18 04/17/18 06:00 06:45 07:00 Temperature Pulse Rate 67 67 80 Respiratory 13 16 16 Rate Blood Pressure 156/99 169/93 169/93 Blood Pressure [Left] O2 Sat by Pulse Oximetry 04/17/18 04/17/18 04/17/18 07:45 08:00 08:28 Temperature Pulse Rate Respiratory 16 Rate Blood Pressure 179/104 172/102 Blood Pressure [Left] O2 Sat by Pulse 98 97 96 Oximetry 04/17/18 08:38 Temperature Pulse Rate Respiratory Rate Blood Pressure Blood Pressure 169/94 [Left] O2 Sat by Pulse Oximetry - Reevaluation(s) Reevaluation #1: 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 Villalpando. The patient will be referred for further evaluation as an outpatient. She has been seizure- free during the day. She has been observed stable. Her renal function is stable. Her CO2 is higher than it was prior. I do not know what whole event of her renal failure is accounting for her low CO2 and what is due to the recent seizure. I am going to go over her meds. She claims that she is taking Dilantin which is apparently not the case as her level is 0.8. He states finally she does not know exactly what she is taking. She is appropriate for outpatient management. 04/17/18 12:43 04/17/18 12:48 ED Medical Decision Making - Lab Data Result diagrams: 04/16/18 23:37 04/16/18 23:37 Laboratory Results - last 24 hr 04/16/18 04/16/18 04/16/18 23:37 23:37 23:37 WBC 9.2 RBC 4.29 Hgb 13.9 Hct 40.9 MCV 95 MCH 32 MCHC 34 RDW 15.9 H Plt Count 165 Lymph % (Auto) 8.5 L [place] % (Auto) 2.4 Eos % (Auto) 0.1 Baso % (Auto) 0.7 Lymph # 0.8 L [place] # 0.2 Eos # 0.0 Baso # 0.1 Seg Neutrophils % 88.3 H Seg Neutrophils # 8.1 H Sodium 138 Potassium 4.3 Chloride 103.4 Carbon Dioxide 17 L Anion Gap 22 BUN 22 H Creatinine 3.1 H Estimated GFR 16 BUN/Creatinine Ratio 7 Glucose 132 H Calcium 8.5 HCG, Qual Negative Laboratory Results - last 24 hr 04/16/18 04/16/18 04/16/18 23:37 23:37 23:37 WBC 9.2 RBC 4.29 Hgb 13.9 Hct 40.9 MCV 95 MCH 32 MCHC 34 RDW 15.9 H Plt Count 165 Lymph % (Auto) 8.5 L [place] % (Auto) 2.4 Eos % (Auto) 0.1 Baso % (Auto) 0.7 Lymph # 0.8 L [place] # 0.2 Eos # 0.0 Baso # 0.1 Seg Neutrophils % 88.3 H Seg Neutrophils # 8.1 H PT INR APTT Sodium 138 Potassium 4.3 Chloride 103.4 Carbon Dioxide 17 L Anion Gap 22 BUN 22 H Creatinine 3.1 H Estimated GFR 16 BUN/Creatinine Ratio 7 Glucose 132 H Calcium 8.5 Total Bilirubin Direct Bilirubin Indirect Bilirubin AST ALT Alkaline Phosphatase Total Protein Albumin Albumin/Globulin Ratio HCG, Qual Negative 04/17/18 04/17/18 06:52 06:52 WBC RBC Hgb Hct MCV MCH MCHC RDW Plt Count Lymph % (Auto) [place] % (Auto) Eos % (Auto) Baso % (Auto) Lymph # [place] # Eos # Baso # Seg Neutrophils % Seg Neutrophils # PT 14.5 INR 1.07 APTT 28.3 Sodium Potassium Chloride Carbon Dioxide Anion Gap BUN Creatinine Estimated GFR BUN/Creatinine Ratio Glucose Calcium Total Bilirubin 0.60 Direct Bilirubin 0.2 Indirect Bilirubin 0.4 AST 14 ALT 7 Alkaline Phosphatase 100 Total Protein 6.3 Albumin 3.1 L Albumin/Globulin Ratio 1.0 HCG, Qual Laboratory Results - last 24 hr 04/16/18 04/16/18 04/16/18 23:37 23:37 23:37 WBC 9.2 RBC 4.29 Hgb 13.9 Hct 40.9 MCV 95 MCH 32 MCHC 34 RDW 15.9 H Plt Count 165 Lymph % (Auto) 8.5 L [place] % (Auto) 2.4 Eos % (Auto) 0.1 Baso % (Auto) 0.7 Lymph # 0.8 L [place] # 0.2 Eos # 0.0 Baso # 0.1 Seg Neutrophils % 88.3 H Seg Neutrophils # 8.1 H PT INR APTT Sodium 138 Potassium 4.3 Chloride 103.4 Carbon Dioxide 17 L Anion Gap 22 BUN 22 H Creatinine 3.1 H Estimated GFR 16 BUN/Creatinine Ratio 7 Glucose 132 H Calcium 8.5 Total Bilirubin Direct Bilirubin Indirect Bilirubin AST ALT Alkaline Phosphatase Total Protein Albumin Albumin/Globulin Ratio HCG, Qual Negative Plasma/Serum Alcohol 04/17/18 04/17/18 04/17/18 06:52 06:52 06:52 WBC RBC Hgb Hct MCV MCH MCHC RDW Plt Count Lymph % (Auto) [place] % (Auto) Eos % (Auto) Baso % (Auto) Lymph # [place] # Eos # Baso # Seg Neutrophils % Seg Neutrophils # PT 14.5 INR 1.07 APTT 28.3 Sodium Potassium Chloride Carbon Dioxide Anion Gap BUN Creatinine Estimated GFR BUN/Creatinine Ratio Glucose Calcium Total Bilirubin 0.60 Direct Bilirubin 0.2 Indirect Bilirubin 0.4 AST 14 ALT 7 Alkaline Phosphatase 100 Total Protein 6.3 Albumin 3.1 L Albumin/Globulin Ratio 1.0 HCG, Qual Plasma/Serum Alcohol < 0.01 - Radiology Data interpreted by me: FINDINGS: Right occipital encephalomalacia is unchanged from prior. Possible serpentine cortical necrosis demonstrated on axial series 2, image 22 is also unchanged. No acute intracranial hemorrhage or mass effect. The ventricles, cisterns and sulci are otherwise within normal limits. No intraparenchymal or extra-axial mass. Peterson and white-matter differentiation is without acute abnormality Normal spherical shape of the globes. Paranasal sinuses and mastoid air cells are clear. No skull or facial fracture visualized. IMPRESSION: No acute intracranial abnormality. Right occipital encephalomalacia and chronic sequela of suggested microvascular angiopathy are unchanged. Critical care attestation.: If time is entered above; I have spent that time in minutes in the direct care of this critically ill patient, excluding procedure time. ED Disposition Clinical Impression: Renal insufficiency, Seizure Type 2 diabetes mellitus with diabetic nephropathy Qualifiers: Diabetes mellitus senior living insulin use: with senior living use Qualified Code(s): E11.21 - Type 2 diabetes mellitus with diabetic nephropathy; Z79.4 - detention ( current) use of insulin Disposition: DC- TO HOME OR SELFCARE Is pt being admited?: No Does the pt Need Aspirin: No Condition: Stable Instructions: Recurrent Seizures Adult (ED), Chronic Kidney Disease (ED), Diabetes Mellitus Type 2 in Adults (ED) Additional Instructions: I am going to place you on an increased dose of your seizure medicine. I am going to order a home health evaluation to help sort out your medications. I spoke to your kidney doctor and they said it was important for you to follow up then and call the office. He should return to the emergency department or any acute change or problem. You should follow up with your primary care physician as well. Prescriptions: levETIRAcetam [Keppra TAB] 750 mg PO BID #60 tablet Referrals: PRIMARY CARE, [Primary Care Provider] - 3-5 Days Time of Disposition: 12:53
[2018-04-17] MEDS ORDERED: KEPPRA 1,000 MG/NS 0.75% 100ML 1,000 MG/100 ML BAG IV ONE (06:40)
[2018-04-17 07:18] LABS: INR 1.07 (0.87-1.13); Partial Thromboplastin Time 28.3 Sec. (24.2-36.6)
[2018-04-17 07:33] LABS: Albumin 3.1 g/dL (3.9-5); Bilirubin,Direct 0.2 mg/dL (0-0.2)
--- NOTE | 2018-04-17 07:42 | Cat Scan Report ---
FINAL REPORT EXAM: CT HEAD/BRAIN WO CON HISTORY: SZ on anticoagulant TECHNIQUE: CT imaging acquired through the head without intravenous contrast. Transaxial reformations are provided. PRIORS: 01/27/2018 FINDINGS: Right occipital encephalomalacia is unchanged from prior. Possible serpentine cortical necrosis demonstrated on axial series 2, image 22 is also unchanged. No acute intracranial hemorrhage or mass effect. The ventricles, cisterns and sulci are otherwise within normal limits. No intraparenchymal or extra-axial mass. Peterson and white-matter differentiation is without acute abnormality Normal spherical shape of the globes. Paranasal sinuses and mastoid air cells are clear. No skull or facial fracture visualized. IMPRESSION: No acute intracranial abnormality. Right occipital encephalomalacia and chronic sequela of suggested microvascular angiopathy are unchanged.
[2018-04-17 15:22] VITALS: BP 146/73
== END 2018-04-17 15:22 | disposition home or self-care (01) ==
LOC: ED 19:15
DX: R56.9 Unspecified convulsions (principal); N28.9 Disorder of kidney and ureter, unspecified; E11.21 Type 2 diabetes mellitus with diabetic nephropathy; I11.0 Hypertensive heart disease with heart failure; I50.9 Heart failure, unspecified; J44.9 Chronic obstructive pulmonary disease, unspecified; Z95.818 Presence of other cardiac implants and grafts; Z76.4 Other boarder to healthcare facility; Z79.899 Other long term (current) drug therapy
CPT/HCPCS: 36415; 70450; 80048; 80074; 80185; 82962; 84703; 85025; 85610; 85730; 96365; 99284; G0480; J1953; 80320